=== PATIENT | male | born 1940 | race Caucasian/White ===

== ENCOUNTER 2017-10-18 14:58 | Observation (INO) | payer OTHER ==
[2017-10-18] MEDS ORDERED: NS 0.9% 1000 ML* 1,000 ML IV ONE (15:08)
--- NOTE | 2017-10-18 15:27 | RAD ---
HISTORY: Aphasia COMPARISONS: None TECHNIQUE: Multiple contiguous axial CT scans were obtained of the head without intravenous contrast. FINDINGS: HEMORRHAGE/INFARCT: There is no hemorrhage or acute infarct. MASSES/SHIFT: There is no mass or shift. EXTRA-AXIAL SPACES: There are no extra-axial fluid collections. SULCI AND VENTRICLES: The sulci and ventricles are normal in size and position for the patient's stated age. CEREBRUM: There are no focal parenchymal abnormalities. BRAINSTEM: There are no focal parenchymal abnormalities. CEREBELLUM: There are no focal parenchymal abnormalities. VESSELS: The vessels are grossly normal. PARANASAL SINUSES: The paranasal sinuses are clear. ORBITS: The orbits are unremarkable. BONES AND SOFT TISSUE: No bone or soft tissue abnormalities are noted. OTHER: None IMPRESSION: NO ACUTE INTRACRANIAL PATHOLOGY. PRELIMINARY FINDINGS WERE DISCUSSED WITH DR. CORNELL AT APPROXIMATELY 3:23 PM ON OCTOBER 18, 2017.
[2017-10-18 15:37] LABS: Hematocrit 40 % (42-52); Hemoglobin 13.4 g/dl (14.0-18.0); Mean Corpuscular HGB Conc 34 g/dl (31-36); Mean Corpuscular Hemoglobin 29 pg (27-31); Mean Corpuscular Volume 86 fL (80-94); Mean Platelet Volume 8 um3 (7.4-10.4); Red Cell Distribution Width 14 % (10.5-15); White Blood Count 6.7 10^3/ul (3.5-10.8)
[2017-10-18 15:51] LABS: Albumin 4.2 g/dL (3.2-5.2); BUN/Creatinine Ratio 12.5 (8-20); Calcium 8.9 mg/dL (8.6-10.3); EGFR African American 51.1 (>60); EGFR Non-African American 39.7 (>60); Globulin 2.2 g/dL (2-4); HDL Cholesterol 46.9 mg/dL; Potassium 4.3 mmol/L (3.5-5.0); Total Bilirubin 0.5 mg/dL (0.2-1.0); Total Protein 6.4 g/dL (6.4-8.9)
--- NOTE | 2017-10-18 15:53 | RAD ---
HISTORY: Confusion, weakness COMPARISONS: None VIEWS: 1: frontal portable view of the chest at 3:35 PM FINDINGS: LINES AND TUBES: None. CARDIOMEDIASTINAL SILHOUETTE: The cardiomediastinal silhouette is normal for portable technique. PLEURA: The costophrenic angles are sharp. No pleural abnormalities are noted. LUNG PARENCHYMA: The lungs are clear. ABDOMEN: The upper abdomen is clear. There is no subphrenic gas. BONES AND SOFT TISSUES: No bone or soft tissue abnormalities are noted. IMPRESSION: NO ACTIVE CARDIOPULMONARY DISEASE.
[2017-10-18] MEDS ORDERED: Ondansetron INJ* 2 MG/ML VIAL IV PRN (16:20)
[2017-10-18] MEDS ORDERED: Acetaminophen TAB* 325 MG PO PRN (16:20)
[2017-10-18 16:25] LABS: Urine Bilirubin Negative (Negative); Urine Glucose Negative (Negative); Urine Nitrite Negative (Negative)
[2017-10-18] MEDS ORDERED: Iodixanol* (CONTRAST) 320 MG/ML 100 ML SDV IV ONE (16:43)
[2017-10-18] MEDS ORDERED: NS 0.9% 1000 ML* 1,000 ML IV SCH (16:45)
--- NOTE | 2017-10-18 18:04 | RAD ---
HISTORY: Word finding, confusion and weakness COMPARISONS: Noncontrast CT October 18, 2017 TECHNIQUE: The following sequences were obtained of the head: Sagittal T1-weighted images, axial T2-weighted images, axial FLAIR images, axial susceptibility weighted images, axial T1-weighted images. Additionally, axial diffusion-weighted images were obtained with calculated apparent diffusion coefficients.. FINDINGS: HEMORRHAGE/INFARCT: There is no hemorrhage or acute infarct. MASSES/SHIFT: There is no mass or shift. EXTRA-AXIAL SPACES/MENINGES: There are no extra-axial fluid collections. SULCI AND VENTRICLES: The sulci and ventricles are normal in size and position for the patient's stated age. CEREBRUM: There is periventricular and subcortical white matter fluid bright T2 hyperintensities symmetrically distributed in the bilateral hemispheres. The gonzales-white matter differentiation is adequately maintained. There is no large area of encephalomalacia. BRAINSTEM: There are no focal parenchymal abnormalities. CEREBELLUM: There are no focal parenchymal abnormalities. The cerebellar tonsils are normal in size and position. SELLA: The sella is normal. PINEAL: The pineal region is clear. CP ANGLE/TEMPORAL BONES: The labyrinthine structures are grossly normal. VESSELS: Normal flow-voids are noted within the visualized vertebral vasculature. DIFFUSION ABNORMALITIES: There are no diffusion abnormalities. PARANASAL SINUSES/MASTOIDS: There are inspissated secretions in the bilateral maxillary sinuses. The remaining visualized paranasal sinuses are adequately aerated. ORBITS: The orbits are unremarkable. BONES AND SOFT TISSUE: No bone or soft tissue abnormalities are noted. IMPRESSION: 1. NO MRI EVIDENCE OF ACUTE TERRITORIAL INFARCTION. 2. FLUID BRIGHT FOCI IN THE PERIVENTRICULAR AND SUBCORTICAL WHITE MATTER IS MOST COMMONLY ASSOCIATED WITH CHRONIC MICROVASCULAR DISEASE. A LESS LIKELY CONSIDERATION IS DEMYELINATING DISEASE. IF THE LATTER IS OF CLINICAL CONCERN FURTHER CHARACTERIZATION WOULD REQUIRE CONTRAST ENHANCEMENT.
--- NOTE | 2017-10-18 19:18 | RAD ---
CPT II: CPT II Codes: 3100F INDICATION: Word finding COMPARISON: Same day MRI and CT of the brain that shows evidence of chronic microvascular disease but no territorial infarction. TECHNIQUE: A CT angiogram of the head and neck was performed with 80 cc of Visipaque 320. Contiguous axial sections were obtained from the thoracic inlet through the [place]. Images were reconstructed in the sagittal, coronal planes and in a 3-D volume rendered format. The distal cervical internal carotid artery diameter is used as the denominater for stenosis measurement. CTA NECK: The common and internal carotid arteries are patent without hemodynamically significant stenosis. Right: The right common carotid artery measures 7 mm in diameter. There is mixed attenuation atherosclerosis at the right carotid bulb but the short axis diameter remains 9 mm yielding 0% degree stenosis. Left: The left common carotid artery measures 6 mm in diameter. There is mild mixed attenuation atherosclerosis at the right carotid bulb that short axis diameter remains 8 mm yielding 0% degree stenosis. The vertebral arteries are patent without gross abnormality. CTA of the brain: The internal carotid, anterior and middle cerebral arteries appear are patent without high grade stenosis or occlusion. The vertebral, basilar and posterior cerebral arteries appear patent without high grade stenosis or occlusion. The left posterior communicating artery is either extremely diminutive or absent causing the [place] to be incomplete. No focal luminal filling defect, aneurysm or vascular malformation is seen. NON-ARTERIAL FINDINGS: There are inspissated secretion in the bilateral maxillary sinuses. Degenerative changes of the cervical spine includes loss of intervertebral disc height and marginal osteophyte formation. There is straightening of the normal cervical lordosis. IMPRESSION: 1. Normal CT angiography of the head and neck. 2. Chronic and degenerative changes noted in the body the report.
--- NOTE | 2017-10-18 20:24 | HP ---
CC: Delia Geronimo MD, [place]; Dr. Cleaning * HISTORY AND PHYSICAL: DATE OF ADMISSION: 10/18/17 PRIMARY CARE PROVIDER: Delia Geronimo MD from [place]. ATTENDING PHYSICIAN WHILE IN THE HOSPITAL: Lyn Chen MD * (report dictated by Rory Elias NP). CONSULTING NEUROLOGIST: Dr. Cleaning. CHIEF COMPLAINT: Trouble with speech. HISTORY OF PRESENTING ILLNESS: Mr. Tamayo is a 77-year-old male patient. He has a history of AFib, hypertension, BPH and a left inguinal hernia. He is on chronic anticoagulation therapy. He came in today around 1 o'clock. He was with his , they were getting ready to depart from [place] to [place] for the holidays and the noted that the patient was having difficulty finding his words. He was most certainly looking at a pair or binoculars, trying to say binoculars, but what was coming out in the 's words was gibberish and just not making sense. It was nonsensical, which was difficult for Dustin and she noticed that he was having difficulty with speech, particularly just trouble finding his words. The patient did state that he recognized this himself and he thought maybe he was tired something to eat, so he ate something, he lied down, it did not go away. He was concerned and he came into our ER here. He denies having any chest pain. He denies having any facial drooping. There was no trouble with weakness to one side. There was no trouble with vision. He did state that he felt a little dizzy and felt like his gait was unsteady when he was walking into the ER today. He denied having any chest pain, shortness of breath. He did state that he had some palpitations yesterday , he took his warfarin at about 11 o'clock last night. He and his was concerned because of the symptoms, he was not acting himself, so he came into the ED, a Ranjit Odom was called. His symptoms did resolve by the time I saw him and he was deemed not to be a tPA candidate based on the fact that he is on Coumadin. He was evaluated in the ED, because of concern for TIA, we were asked to evaluate for admission. PAST MEDICAL HISTORY: Significant for: 1. AFib. 2. Hypertension. 3. BPH. 4. Left inguinal hernia. PAST SURGICAL HISTORY: He has had a toenail extraction only. MEDICATIONS: Home medications include: 1. Warfarin 6 mg daily. 2. Flomax 0.4 mg p.o. daily. 3. Lisinopril 10 mg daily. 4. Proscar 5 mg daily. 5. Toprol-XL 25 mg daily. ALLERGIES: His allergies to medications include no known drug allergies. FAMILY HISTORY: Mother had a history CVA. Father had an [place] at 52. SOCIAL HISTORY: He smoked when he was in college. He does not drink alcohol. He is a physician. Surrogate decision maker is his significant other, Elizabeth. REVIEW OF SYSTEMS: There is no documented fever. He denied having any significant weight change. There was no double vision. There was no ear discharge. He denied having any rhinorrhea. No sore throat or thyroid enlargement. He denied having any chest pain. There was no orthopnea. There was no nocturnal dyspnea. There was no abdominal pain. No nausea. No vomiting. No dysuria. No frequency. No seizures. No loss of consciousness. No pruritus and no skin ulceration. Review of 14 systems was completed, all others negative. PHYSICAL EXAMINATION GENERAL: At this time, Mr. Tamayo is a 77-year-old male patient, who appears to be well nourished, well developed. He is sitting in the ER stretcher. He does not appear to be in any acute distress. VITAL SIGNS: Blood pressure 123/72 with a pulse of 68, respirations 15, O2 sat 96%, temperature 97.8. HEENT: Head: Atraumatic, normocephalic. Eyes: EOMs are intact. Sclerae anicteric and not pale. Throat: Oral mucosa appears to be moist. No oropharyngeal erythema. NECK: Supple. LUNGS: Clear to auscultation bilaterally. No wheezes, rales, or rhonchi. HEART: Sounds S1, and S2. Regular rate and rhythm. No murmurs, rubs, or gallops. ABDOMEN: Soft, flat, nontender. Bowel sounds present. EXTREMITIES: Pulses were 2+ throughout. He is moving all 4 extremities with 5/ 5 strength. NEUROLOGICAL: The patient is awake, alert, oriented x3. Speech is clear. Cranial nerves II through XII were intact. His staffing specialist were equal. Tongue was midline. Gxiwpl-mc-ezef and iwoo-qq-nbhg were both intact bilaterally. He had no gross focal deficits. SKIN: Intact. LABORATORY DATA/DIAGNOSTIC STUDIES: WBC of 6.7, RBC of 4.60, hemoglobin of 13.4, hematocrit 40, platelet count of 209,000. INR 1.84. The sodium was 136, potassium 4.3, chloride of 104, bicarb 26, BUN 21, creatinine of 1.68, I do not have a baseline for comparison. He had a glucose of 109, lactate 1.1, calcium 8.9, total bili 0.5. AST 22, ALT 13, alk phos 60. Troponin 0. Albumin of 4.2. LDH is 115. Urine is pending. I had a brain CT obtained today, impression: No acute intracranial pathology. Chest x-ray today showed no active cardiopulmonary disease. There was an EKG obtained today, which showed normal sinus rhythm, rate of 69. No ST elevations or T-wave inversions were noted. Old medical records were reviewed. ASSESSMENT AND PLAN: Mr. Tamayo is a 77-year-old male patient who comes into our ER today with complaints of difficulty with speech. On evaluation today, there is concern for transient ischemic attack. He will be admitted under observation status for: 1. Transient ischemic attack. At this point, we will get neuro checks every 2 hours. We will go ahead and continue him on his Coumadin, I am going to give him 7.5 mg today. Repeat the INR in the morning. We will get lipid panel, A1c in the morning. We will get an MRI of the brain, CTA of head and neck, and also get an echo, place the patient on telemetry. 2. Benign prostatic hyperplasia. Continue his Proscar and Flomax. 3. Hypertension. In the setting of acute stroke, I am just going to continue with beta-yvette. Hold lisinopril for now. 4. Atrial fibrillation. I will continue his Coumadin and continue with rate controlling agents. 5. DVT prophylaxis. I am just going to put him on SCDs as his INR is 1.84. We will use the Coumadin for the prophylaxis. 6. Fluids, electrolytes and nutrition. He can have a heart-healthy diet. 7. Code status, full code. TIME SPENT: On the admission 60 minutes, greater than half the time was spent face- to-face with the patient obtaining my history and physical, other half of time was spent going over the plan of care with the patient and implementing plan of care. I did discuss the plan of care with my attending, Dr. Chen; she is in agreement. RORY ELIAS, [employer]TER [employer] [id number]/[facility] #: [id number] LITTLE
[2017-10-18] MEDS ORDERED: Warfarin TAB(*) 7.5 MG PO ONE (21:00)
--- NOTE | 2017-10-18 21:14 | CONS ---
CONSULTATION REPORT: DATE OF CONSULT: 10/18/17 REASON FOR ADMISSION: Aphasia, now resolved. HISTORY OF PRESENT ILLNESS: Mr. 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 He has a history of BPH, history of hypertension and a history of paroxysmal atrial fibrillation. About 6 months ago, he started on Coumadin, but he has no history of prior stroke or heart attack. He has been in his usual state of health witnessed, today at around 1 o 'clock he was doing some cleanup work at home preparing for a trip and he noticed that he had some difficulty saying what he wanted to say. He who was at his bedside states that he tried to speak, but some gibberish came out. This lasted for a few minutes and then it resolved. She notes that last night he also seemed to get a little bit confused when he was walking from his room to the bathroom and made a wrong turn. He may have had some difficulty reading as well on the way here, but it is unclear. In any event when he arrived in the ER, his symptoms had resolved. He denies any current chest pain or palpitations , but he states that he did feel some palpitations yesterday. These typically come in clusters with intermittent time between them. He has had no vision changes, no vision loss. No facial droop reported. No facial sensation changes. No numbness, tingling or weakness in his arms or legs. He has had no falls, head trauma. He denies any recent fevers, chills, night sweats, nausea, vomiting diarrhea, constipation. No dyspnea on exertion. He does have some hesitancy, but no dysuria reported. He has otherwise been in his usual state of health. Currently he feels back to his baseline, although he is somewhat anxious about his event. In the ER, he did have a CT of the head done, which showed no acute changes, no evidence of bleeding. No mass effect. CT was reviewed. Chest x-ray in the ER shows no active cardiopulmonary disease. PAST MEDICAL HISTORY: As noted above. PAST SURGICAL HISTORY: Negative. MEDICATIONS: Current medications at home include: 1. Warfarin 6 mg daily. 2. Flomax 0.4 mg daily. 3. Lisinopril 10 mg daily. 4. Finasteride 5 mg daily. 5. Metoprolol 25 mg daily. ALLERGIES: No known drug allergies. FAMILY HISTORY: Noncontributory. SOCIAL HISTORY: He works as a physician automotive parts counter person. He smoked, but none in many many years. Occasional social alcohol use, but nothing heavy. No drug use. He lives with his . He is planning for a vacation leaving today prior to this event. REVIEW OF SYSTEMS: In 14 organ systems as noted above, otherwise negative. PHYSICAL EXAM: Vital Signs: Blood pressure 138/71 to 123/72 to 135/79. He is afebrile. Pulse is 67, respiratory rate is 16, pulse ox 97%. In general, he is a well-nourished, well-developed gentleman in no acute distress. He is sitting in his hospital bed. He is pleasant, well dressed, well groomed. HEENT : Normocephalic, atraumatic. Sclerae are anicteric. Mucous membranes are moist. Oropharynx is clear. Nares are patent. Neck is supple. No thyromegaly , no carotid bruits. No meningismus. Chest: Clear to auscultation bilaterally. Cardiovascular: Regular rate and rhythm without murmurs. Abdomen : Nontender, nondistended. Extremities: No clubbing, cyanosis, or edema. Skin: Warm and dry. Neurologic exam: He is awake, alert and oriented x3. His speech is fluent. There is no dysarthria. Repetition is intact. Recall of recent and remote events is intact. Mood is dysthymic. Affect, mood congruent. Cranial nerves II through XII; pupils are are equal, round, and reactive to light. Extraocular muscles are intact. Visual [place] are full to confrontation. His face is symmetric. Sensation is intact in his face bilaterally. Hearing is intact bilaterally. Tongue is midline. Palate raises symmetrically. Sternocleidomastoid and trapezius intact. He spontaneously moves all extremities antigravity. There is no drift apparent. He is 5/5 throughout. Tone and bulk was normal. DTRs are 1+ and symmetric in the upper and lower extremities bilaterally with equivocal Babinski's. Qlgukv-yb-zgvk and rapid alternating movements and heel to velásquez are all normal. There is no tremor. There is no ataxia. Sensation is intact to light touch and pinprick in all 4 extremities grossly. Gait was not tested at this time. DIAGNOSTIC STUDIES/LAB DATA: Lab work includes a complete metabolic profile with a creatinine of 1.68, glucose of 109, cholesterol of 198, LDL of 115, HDL of 46.9, triglycerides of 181. INR of 1.84. PTT of 40.9. CBC with diff: White count of 6.7, hemoglobin of 13.4, hematocrit of 40. Urine negative. ASSESSMENT AND PLAN: Mr. Tamayo is a 77-year-old gentleman with a history of hypertension, history of paroxysmal atrial fibrillation on Coumadin, subtherapeutic on admission who presents to the hospital within the 3-hour window of TPA, at about 1 o'clock this afternoon developed sudden onset of some speech difficulties, possibly some mild aphasia which resolved after a few minutes. When he arrived at the hospital, his symptoms had resolved with an NIH of 0. He did note some fluttering in his chest last night, none today, but has it occasionally, has been compliant with his medications, but was nontherapeutic on his Coumadin today. At this point, I suspect transient ischemic attack. He will be admitted for additional workup including MRI to rule out any stroke, echocardiogram to look for any evidence of thrombus or valvular disease and CT angiogram of the head and neck versus MRA of the head and neck to look for any evidence of stenosis or large vessel disease. We will continue his Coumadin. My suspicion for a large lobar watershed infarct is very low given his symptoms. Continue moderate blood pressure control. I would allow for some permissive hypertension tonight. He is a nonsmoker. He is a nondiabetic. We will monitor him overnight for any further neurologic events. We can consider adding a statin for better cholesterol control, but can hold for tonight. I will continue his other medications unchanged. We will continue to follow him closely, make further recommendations as necessary. Thank you for the opportunity to participate in his care. [id number]/[facility] #: [id number] LITTLE
[2017-10-19 05:53] LABS: Hematocrit 35 % (42-52); Hemoglobin 12.2 g/dl (14.0-18.0); Mean Corpuscular HGB Conc 34 g/dl (31-36); Mean Corpuscular Hemoglobin 29 pg (27-31); Mean Corpuscular Volume 85 fL (80-94); Mean Platelet Volume 8 um3 (7.4-10.4); Red Blood Count 4.15 10^6/ul (4.0-5.4); Red Cell Distribution Width 13 % (10.5-15); White Blood Count 5.4 10^3/ul (3.5-10.8)
[2017-10-19 06:04] LABS: Calcium 8.2 mg/dL (8.6-10.3); EGFR African American 58.2 (>60); EGFR Non-African American 45.3 (>60); HDL Cholesterol 40.3 mg/dL; Potassium 4.2 mmol/L (3.5-5.0)
[2017-10-19] MEDS ORDERED: Metoprolol Succinate XL TAB* 25 MG PO SCH (09:00)
[2017-10-19] MEDS ORDERED: Finasteride TAB* 5 MG PO SCH (09:00)
[2017-10-19] MEDS ORDERED: Tamsulosin CAP* 0.4 MG PO SCH (09:00)
--- NOTE | 2017-10-19 10:16 | PN ---
DATE OF PROGRESS NOTE: 10/19/2017. Patient is in room 443, bed 2. SUBJECTIVE: The patient is doing well. No new issues over night. He has had no further speech difficulties. He has no numbness, tingling or weakness. He has been walking around. He feels good. He has had no other symptoms since his admission to the hospital. OBJECTIVE: In general, he is a well-nourished, well-developed gentleman in no acute distress. He is sitting in his hospital bed. He is pleasant, well- dressed, well-groomed. Vital Signs: Temperature 97.8, pulse 64, respiratory rate 16, pulse ox 99 percent, blood pressures have been on the low side 97 to 133/50s to 80s. HEENT: He is normocephalic, atraumatic. Scleral anicteric. Mucus membranes are moist. Oropharynx is clear. Nares are patent. Neck is supple. Chest: Clear to auscultation bilaterally. Cardiovascular: He is currently regular rate and rhythm. Abdomen: Nontender. Extremities: No clubbing, cyanosis, or edema. Skin is warm and dry. Neurologic exam: He is awake, alert and oriented times three. His speech is fluent. There is no dysarthria. Recent of recent and remote events is intact. Vocabulary is intact. Mood is euthymic. Affect is mood congruent. Cranial nerves II through XII. Pupils are equal, round and reactive to light. Extraocular muscles are intact. Visual salinas are full. Face is symmetric. Facial sensation is intact. Hearing is intact bilaterally. Tongue is midline. Palate raises symmetrically. His motor exam is 5/5 throughout. No drift. Tone and bulk are both normal. Sensation is grossly intact to light touch throughout. DTR's are 1 + and symmetric in the upper and lower extremities. Equivocal Babinski's. Ewrdqr-[id number]-xcog rapid alternating movements are significant for a very mild intention tremor, otherwise no evidence of ataxia or resting tremor. Gait was not tested this morning, but he has been ambulating without difficulty. LABORATORY DATA: Lab work includes a hemoglobin this morning of 12.2, hematocrit of 35; PT of 2.2, up from 1.84 yesterday, PTT of 40.9. His creatinine is down 1.5 today from 1.6, calcium of 8.2, cholesterol is 164, triglycerides 125, LDL 99, HDL 40.3. STUDIES: He did have a head CTA done yesterday which was negative. He had an MRI of the brain which showed no acute changes. He did have some chronic white matter ischemic changes. Echocardiogram is pending. ASSESSMENT AND PLAN: Mr. Tamayo is a 77-year-old gentleman with a history of atrial fibrillation, on Coumadin, history of hypertension, and BPH who presented to the hospital with some speech difficulties yesterday which resolved after a few minutes. He has since had no further symptoms. Work-up to date is negative. I would continue his current medications, adjusting Coumadin as necessary for therapeutic INR, watch his cholesterol as an outpatient and can add a statin if necessary. Would like his goal LDL to be less than 70. Continue blood pressure control. Watch for any evidence of diabetes. He is a nonsmoker. I will follow-up his echocardiogram. If it is negative, then he can go home. I did have a long talk with the patient and his about returning to the ER with any new stroke like symptoms. He will monitor his INR as an outpatient as well. 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 I will continue to follow him during his hospitalization and plan to see him as an outpatient for follow-up as well. [id number]/[facility] #: [id number] [facility]ITTLE
[2017-10-19 12:29] VITALS: BP 126/71
--- NOTE | 2017-10-19 13:45 | ECHO ---
Patient: ANGELES WELLS [facility] Rec#: [id number] : 1940 Date: 10/19/2017 Age: 77y Height: 170.18 cm / 67.0 in Weight: 80.74 kg / 178.0 lbs Sex: M BSA: 1.92 Room#: 443 Admit Date#: 10/18/2017 Type: Inpatient Referring: Rory Elias NP Reading: Kellie Dai MD Physician Relations Manager: Deirdre Estrella [facility] Transthoracic Echocardiogram Indication: TIA BP: 123/72 HR: 59 Rhythm: Bradycardia Findings History: A-fib,HTN,BPH. Technical Comments: The study quality is good. Completed at 1308. Left Ventricle: The left ventricular chamber size is normal. Mild concentric left ventricular hypertrophy is observed. Global left ventricular wall motion and contractility are within normal limits. The estimated ejection fraction is 55-60%. The assessment of diastolic function is non-diagnostic.most c/w normal. Left Atrium: The left atrium is mildly dilated. Right Ventricle: The right ventricular cavity size is normal. The right ventricular global systolic function is normal. Right Atrium: The right atrium is mildly dilated. There is no patent foramen ovale visualized. A patent foramen ovale is not demonstrated with color Doppler and agitated contrast. Aortic Valve: The aortic valve is trileaflet. There is no evidence of aortic regurgitation. There is no evidence of aortic stenosis. Mitral Valve: The mitral valve leaflets are mildly thickened. There is mild to moderate mitral regurgitation. The mitral regurgitant jet is laterally directed. There is no evidence of mitral stenosis. Tricuspid Valve: The tricuspid valve leaflets are normal. There is moderate tricuspid regurgitation. The right ventricular systolic pressure is estimated at 25 mmHg. No pulmonary hypertension is noted. There is no tricuspid stenosis. Pulmonic Valve: The pulmonic valve appears normal. There is mild pulmonic regurgitation. eccentric, angled towards free wall. There is no pulmonic stenosis. Pericardium: The pericardium appears normal. Aorta: There is no dilatation of the ascending aorta. There is no dilatation of the aortic arch. There is no dilation of the aortic root. Pulmonary Artery: The main pulmonary artery appears normal. Venous: The inferior vena cava appears normal in size. There is a greater than 50% respiratory change in the inferior vena cava dimension. Contrast: Normal saline was used as contrast for the bubble study. Intravenous contrast was used to help determine presence of intracardiac shunting. Conclusions Mild concentric left ventricular hypertrophy is observed. Global left ventricular wall motion and contractility are within normal limits. The estimated ejection fraction is 55-60%. The right ventricular global systolic function is normal. No patent foramen ovale demonstrated with color Doppler and agitated contrast. There is mild to moderate mitral regurgitation. There is moderate tricuspid regurgitation. No prior echo to compare. Measurements Name Value Normal Range RVIDd (AP) 2D 2.5 cm (0.9 - 2.6) RVDdMajor (2D) 3.3 cm (2.2 - 4.4) RAd ISD 4CH 5.1 cm (3.4 - 4.9) RA (A4C)W 3.9 cm (2.9 - 4.6) IVSd (2D) 1.2 cm (0.6 - 1) LVPWd (2D) 1.2 cm (0.6 - 1) LVIDd (2D) 5 cm (3.6 - 5.4) LVIDs (2D) 3.4 cm - LV FS (2D) 32 % (25 - 45) Aortic Annulus 2.3 cm (1.4 - 2.6) Ao root diameter (2D) 2.5 cm (2.1 - 3.5) Ascending Ao 3.4 cm (2.1 - 3.4) Aortic arch 2.5 cm (1.8 - 3.4) Descending Ao 0.5 cm - LA dimension (AP) 2D 4.1 cm (2.3 - 3.8) LAd ISD 4CH 5.7 cm (2.9 - 5.3) LA ISD 4CH W 4 cm (2.5 - 4.5) Name Value Normal Range LA ESV SP 4CH (A/L) 58 ml - LA ESV SP 2CH (A/L) 92 ml - LA ESV BP (A/L) 74 ml - LA ESV BP (A/L) index 38.42 ml/m2 - LA ESV SP 4CH (MOD) 57 ml - LA ESV SP 2CH (MOD) 87 ml - Name Value Normal Range MV E-wave Vmax 0.6 m/sec - MV deceleration time 292 msec - MV A-wave Vmax 0.7 m/sec - MV E:A ratio 1 ratio - LV septal e' Vmax 0.09 m/sec - LV lateral e' Vmax 0.13 m/sec - LV E:e' septal ratio 6.67 ratio - LV E:e' lateral ratio 4.62 ratio - Name Value Normal Range AV Vmax 1 m/sec - AV VTI 25.6 cm - AV peak gradient 4.29 mmHg - AV mean gradient 2.21 mmHg - LVOT Vmax 1 m/sec - LVOT VTI 20.5 cm - LVOT peak gradient 4.16 mmHg - LVOT mean gradient 1.8 mmHg - Name Value Normal Range MR Vmax 4.6 m/sec - MR VTI 184 cm - Name Value Normal Range TR Vmax 2.4 m/sec - TR peak gradient 22 mmHg - RAP 3 mmHg - RVSP 25 mmHg - IVC diameter 1.9 cm - Name Value Normal Range PV Vmax 0.8 m/sec - PV peak gradient 2.23 mmHg -
--- NOTE | 2017-10-19 22:18 | ED ---
Ernst Braga Alfonso scribed for Alexandro Noel MD on 10/18/17 at 1516 . Neurological HPI - HPI Summary HPI Summary: This patient is a 77 year old M presenting to [facility] accompanied by with a chief complaint of dysarthria since approximately 1300 today. reports he was pointing at a pair of binoculars and was saying words that werent words and it was clear that it was a moment that was 5 seconds of gibberish he could not repeat words back immediately after I said it and last night he walked into his closet instead of the background, but it was pitch dark. The patient rates the pain 0/10 in severity. Symptoms aggravated by nothing. Symptoms alleviated by spontaneous resolution. Patient reports nausea (during CT scan), and dizziness (during CT scan). reports memory loss, weakness, and fatigue. He recently began taking Coumadin for A-Fib. He ate this morning. 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 - History of Current Complaint Chief Complaint: EDAltMentalStatus Stated Complaint: CONFUSED/WEAKNESS Time Seen by Provider: 10/18/17 15:08 Hx Obtained From: Patient Onset/Duration: Sudden Onset, Started minutes ago, Resolved Timing: Constant Pain Intensity: 0 Pain Scale Used: 0-10 Numeric Character: Other: - Patient reports nausea (during CT scan), and dizziness ( during CT scan). reports memory loss, weakness, and fatigue Aggravating: Nothing Alleviating: Spontanious Resolution - Allergy/Home Medications Allergies/Adverse Reactions: Allergies Allergy/AdvReac Type Severity Reaction Status Date / Time No Known Allergies Allergy Verified 10/18/17 15:31 Home Medications: Home Medications Finasteride TAB* [Proscar TAB*] 5 mg PO DAILY 10/18/17 [History Confirmed ] Lisinopril TAB* [Prinivil TAB*] 10 mg PO DAILY 10/18/17 [History Confirmed 10/18] Metoprolol Succinate XL TAB* [Toprol XL TAB*] 25 mg PO DAILY 10/18/17 [History Confirmed 10/18/17] Tamsulosin CAP* [Flomax CAP*] 0.4 mg PO DAILY 10/18/17 [History Confirmed ] Warfarin TAB(*) [Coumadin TAB(*)] 1 mg PO DAILY 10/18/17 [History Confirmed ] Warfarin TAB(*) [Coumadin TAB(*)] 5 mg PO DAILY 10/18/17 [History Confirmed ] PMH/Surg Hx/FS Hx/Imm Hx Cardiovascular History: Reports: Hx Atrial Fibrillation, Hx Hypercholesterolemia , Hx Hypertension History: Reports: Hx Benign Prostatic Hyperplasia Opthamlomology History: Denies: Hx Legally Blind EENT History: Denies: Hx Deafness Infectious Disease History: No Infectious Disease History: Denies: Traveled Outside the [place] in Last 30 Days - Family History Known Family History: Positive: Other - CVA mother - Social History Lives: With Family Alcohol Use: Occasionally Hx Substance Use: No Substance Use Type: Reports: None Hx Tobacco Use: Yes Smoking Status (MU): Former Smoker Review of Systems Positive: Fatigue. Negative: Fever, Chills Negative: Erythema Negative: Sore Throat Negative: Chest Pain Negative: Shortness Of Breath, Cough Positive: Nausea. Negative: Abdominal Pain, Vomiting Negative: dysuria, hematuria Negative: Myalgia, Edema Negative: Rash Neurological: Other - dysarthria, dizziness, memory loss, weakness All Other Systems Reviewed And Are Negative: Yes Physical Exam - Summary Physical Exam Summary: Constitutional: Well-developed, Well-nourished, Alert. (-) Distressed Skin: Warm, Dry HENT: Eyes: Conjunctiva normal Neck: Musculoskeletal ROM normal neck. (-) JVD, (-) Stridor, (-) Tracheal deviation Cardio: Rhythm regular, rate normal, Heart sounds normal; Intact distal pulses; The pedal pulses are 2+ and symmetric. Radial pulses are 2+ and symmetric. (-) Murmur Pulmonary/Chest wall: Effort normal. (-) Respiratory distress, (-) Wheezes, (-) Rales Abd: Soft. (-) Tenderness, (-) Distension, (-) Guarding, (-) Rebound Musculoskeletal: (-) Edema Lymph: (-) Cervical adenopathy Neuro: Alert, Oriented x3, Strength normal, Cranial nerves II-XII are grossly intact. (-) Dysmetria, (-) Nystagmus, (-) Ataxia by finger to nose testing, (-) Sensory deficit. Psych: Mood and affect Normal Triage Information Reviewed: Yes Vital Signs On Initial Exam: Initial Vitals Temp Pulse Resp BP Pulse Ox 97.8 F 73 18 137/83 98 10/18/17 14:59 10/18/17 14:59 10/18/17 14:59 10/18/17 14:59 10/18/17 14:59 Vital Signs Reviewed: Yes - [place] Coma Scale Best Eye Response: 4 - Spontaneous Best Motor Response: 6 - Obeys Commands Best Verbal Response: 5 - Oriented Diagnostics - Vital Signs Vital Signs Temp Pulse Resp BP Pulse Ox 10/18/17 14:59 97.8 F 73 18 137/83 98 - Laboratory Result Diagrams: 10/18/17 15:30 10/18/17 15:30 Lab Statement: Any lab studies that have been ordered have been reviewed, and results considered in the medical decision making process. - Radiology CXR Radiology Interpretation Completed By: Radiologist - NO ACTIVE CARDIOPULMONARY DISEASE. ED physician has reviewed this radiology report and agrees. - CT Brain CT Interpretation Completed By: Radiologist - NO ACUTE INTRACRANIAL PATHOLOGY. PRELIMINARY FINDINGS WERE DISCUSSED WITH DR. NOEL AT APPROXIMATELY 3:23 PM ON OCTOBER 18, 2017. ED physician has reviewed this radiology report and agrees. - EKG 1532 Cardiac Rate: NL EKG Rhythm: Sinus Rhythm - 69 BPM Ectopy: None EKG Interpretation: No STEMI NIH Scale - NIH Scale Level of Consciousness: Alert/Keenly Responsive Ask Patient the Month and His/Her Age: Both Correct Ask Pt to Open/Close Eyes and Spanisher/Release Non-Paretic Hand: Both Correctly Best Gaze (Only Horizontal Eye Movement): Normal Visual Field Testing: No Visual Loss Facial Paresis-Pt to Smile & Close Eyes or Grimace Symmetry: Normal/Symmetrical Motor Function - Right Arm: No Drift-Holds 10 Seconds Motor Function - Left Arm: No Drift-Holds 10 Seconds Motor Function - Right Leg: No Drift-Holds 10 Seconds Motor Function - Left Leg: No Drift-Holds 10 Seconds Limb Ataxia-Must be out of Proportion to Weakness Present: Absent Sensory (Use Pinprick to Test Arms/Legs/Trunk/Face): Normal Best Language (Describe Picture, Name Items): No Aphasia Dysarthria (Read Several Words): Normal Extinction and Inattention: No Abnormality Total Score: 0 Course/Dx - Course Assessment/Plan: This patient is a 77 year old M presenting to [facility] accompanied by with a chief complaint of dysarthria since approximately 1300 today. reports he was pointing at a pair of binoculars and was saying words that werent words and it was clear that it was a moment that was 5 seconds of gibberish he could not repeat words back immediately after I said it and last night he walked into his closet instead of the background, but it was pitch dark. The patient rates the pain 0/10 in severity. Symptoms aggravated by nothing. Symptoms alleviated by spontaneous resolution. Patient reports nausea (during CT scan), and dizziness (during CT scan). reports memory loss, weakness, and fatigue. He recently began taking Coumadin for A- Fib. He ate this morning. 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 An EKG reveals Sinus Rhythm. CXR reveals, per radiologist, NO ACTIVE CARDIOPULMONARY DISEASE. ED physician has reviewed this radiology report and agrees. CT Brain reveals, per radiologist, NO ACUTE INTRACRANIAL PATHOLOGY. PRELIMINARY FINDINGS WERE DISCUSSED WITH DR. NOEL AT APPROXIMATELY 3:23 PM ON OCTOBER 18, 2017. ED physician has reviewed this radiology report and agrees. Consulted Dr. Cleaning (neurologist) at 1525 regarding the patient's case. Consulted Dustin Elias SPOOL CARRIER at 1558 who agrees to admit. The patient is agreeable with this plan. - Diagnoses Provider Diagnoses: TIA (transient ischemic attack) During the Visit The Following Alert/Code Occurred: Code [place] - Physician Notifications Discussed Care Of Patient With: Jaime Claening Time Discussed With Above Provider: 15:25 Instructed by Provider To: Other - Consulted Dr. Cleaning (neurologist) at 1525 regarding the patient's case. Consulted Dustin Elias SPOOL CARRIER at 1558 who agrees to admit. Discharge - Discharge Plan Condition: Stable Disposition: ADMITTED TO [facility] documentation as recorded by the Ernst ross Alfonso accurately reflects the service I personally performed and the decisions made by me, Alexandro Noel MD.
--- NOTE | 2017-10-20 10:09 | DS ---
CC: Dr. Mauricio Cleaning * DISCHARGE SUMMARY: DATE OF ADMISSION: 10/18/17 DATE OF DISCHARGE: 10/19/17 ADMISSION DIAGNOSES: 1. Transient ischemic attack. 2. Atrial fibrillation. 3. Hypertension. 4. Benign prostatic hypertrophy. DISCHARGE DIAGNOSES: 1. Transient ischemic attack. 2. Atrial fibrillation. 3. Hypertension. 4. Benign prostatic hypertrophy. HOSPITAL COURSE: The patient is a 77-year-old gentleman who presented to [facility] with a chief complaint of trouble speaking. Please see H and P for further details. The patient was admitted for likely TIA. He got neuro checks q.2 hours. We continued him on his Coumadin. He had a brain CT, brain MRI, and CTA of his head. The patient's symptoms resolved by the time he got to the hospital. He was seen by Neurology in followup. The patient was stable for discharge to home. The patient will follow up with his PCP and Neurology. Neurology should be seen in 6 to 8 weeks. The patient should continue his current therapy. His workup was essentially unremarkable. PHYSICAL EXAMINATION: On the date of discharge: A well-developed, well- nourished gentleman, sitting up in bed, in no acute distress. Vital Signs: Temperature 98.2 degrees, heart rate 62 beats per minute, respiratory rate 16 breaths per minute, pulse ox 99%, blood pressure 126/71. HEENT: Normocephalic and atraumatic. Pupils are equal, round, and reactive to light. Moist mucous membranes. Neck is supple. No JVD, bruits, palpable thyroid or lymphadenopathy. Chest: Clear to auscultation and percussion bilaterally. Cardiovascular Exam: S1 and S2 appreciated. Regular rate and rhythm. Abdominal Exam: Positive bowel sounds in all 4 quadrants. Soft, nontender, and nondistended. No hepatosplenomegaly. Extremities: No cyanosis, clubbing, or edema. +2 peripheral pulses bilaterally. Neuro: Alert and oriented x3, moves all extremities. Skin: No rashes or abnormalities. STUDIES DONE WHILE IN THE HOSPITAL: Brain CT, 10/18/17. Impression: No acute intracranial pathology. Chest x-ray, 10/18/17. Impression: No active cardiopulmonary disease. Brain MRI, 10/18/17. Impression: No MRI evidence of acute territorial infarction. Fluid, right foci of the periventricular and subcortical white matter is most commonly associated with chronic microvascular disease, less likely consideration is demyelinating disease. The latter is clinical concern. Further characterization would require contrast enhancement. Head CTA, 10/18/17. Impression: Normal CT angiography of the head and neck. Chronic degenerative changes noted in the body of the report. Transthoracic echocardiogram, 10/18/17. Impression: Mild concentric left ventricular hypertrophy is observed. Global left ventricular wall motion and contractility within normal limits. Estimated EF of 55% to 60%. Biventricular global systolic function is normal. No patent foramen ovale demonstrated with color Doppler and agitated contrast. Xiad-by-ltdendht mitral regurgitation. Moderate tricuspid regurgitation. No prior echo to compare. DISCHARGE MEDICATIONS: 1. Coumadin 6 mg daily. 2. Tamsulosin 0.4 mg daily. 3. Lisinopril 10 mg daily. 4. Finasteride 5 mg daily. 5. Metoprolol succinate 25 mg daily. DISCHARGE PLAN: The patient will be discharged home to follow up with his PCP within 1 week and Neurology in 6 to 8 weeks. The patient will return to the ED if symptoms recur. TIME SPENT: Over 40 minutes were spent on this discharge, more than 25 minutes of which were spent in direct [id number] with the patient in evaluation, physical exam, counselling, and coordination of care. [id number]/[facility] #: [id number] [facility] HOSPITALJulius
== END 2017-10-19 16:15 | disposition home or self-care (01) ==
LOC: ED 14:58 → MEDTELE 16:42
PROVIDERS: ADMIT Internal Medicine; ATTEND Internal Medicine
DX: G45.9 Transient cerebral ischemic attack, unspecified (principal); I48.91 Unspecified atrial fibrillation; Z79.01 Long term (current) use of anticoagulants; I10 Essential (primary) hypertension; N40.0 Benign prostatic hyperplasia without lower urinary tract symptoms; I51.7 Cardiomegaly; K40.90 Unilateral inguinal hernia, without obstruction or gangrene, not specified as recurrent; Z79.899 Other long term (current) drug therapy; Z87.891 Personal history of nicotine dependence
CPT/HCPCS: 36415; 70450; 70496; 70498; 70551; 71010; 80048; 80053; 80061; 81003; 83036; 83605; 84484; 85025; 85610; 85730; 86850; 86900; 86901; 93005; 93306; 96360; 99285; A9270-GY; G0378; Q9967

== ENCOUNTER 2018-02-17 12:33 | Inpatient (IN) | payer OTHER ==
--- NOTE | 2018-02-17 13:44 | ED ---
Priscilla Braga Julia, scribed for Stephania Betancur MD on 02/17/18 at 1322 . Neurological HPI - HPI Summary HPI Summary: This patient is a 78 year old M [facility] by his with a chief complaint of gradually worsening weakness of the bilateral upper and lower extremities and tingling of the fingers and toes since 02/14/18. Pt states he first noticed sx on Tuesday. States his middle fingers on both hands were tingling. Pt states on Tuesday he went for a walk and had hip pain described as achey and tight while walking. Since this time, he notices his hands are weak and shaky - requiring 2 hands to drink from a cup. He reports awkward and cautious movements while walking. describes walking as lurgee like and shuffled. Patient reports recent cold like illness without fever - resolved over the weekend. Pt also with significant rhinorrhea. Patient denies CP, SOB, nausea, vomiting, difficulty collecting thoughts, difficulty talking, and difficulty eating. Patient has a history of TIA, in September 2017, with expressive aphasia that spontaneously resolved without residual side effects. Patient is on Coumadin for intermittent a-fib. He spoke with her neurologist Dr. Cleaning and has an appointment for 02/21/18, but he came to the ED because of worsening symptoms. 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 Pt's medications reviewed this visit. - History of Current Complaint Chief Complaint: EDNeurologicalDeficit Stated Complaint: FINGER NUMBNESS/WEAKNESS Time Seen by Provider: 02/17/18 13:04 Hx Obtained From: Patient, Family/[employer] Onset/Duration: Gradual Onset, Started days ago Timing: Constant Onset Severity: Mild Current Severity: Moderate Neurological Deficit Location: RUE, LUE, RLE, LLE Pain Intensity: 2 Character: Numbness/Tingling - to fingers and toes, Motor Weakness - in extremities Associated Signs and Symptoms: Positive: Negative - CP, SOB, nausea, vomiting, difficulty collecting thoughts, difficulty talking, and difficulty eating, Unsteady Gait, Weakness Related Hx: Recent Illness - and TIA, Coumadin - Additional Pertinent History Primary Care Physician: [id number] - Allergy/Home Medications Allergies/Adverse Reactions: Allergies Allergy/AdvReac Type Severity Reaction Status Date / Time No Known Allergies Allergy Verified 02/17/18 12:46 PMH/Surg Hx/FS Hx/Imm Hx Previously Healthy: Yes Endocrine/Hematology History: Reports: Hx Anticoagulant Therapy Denies: Hx Diabetes Cardiovascular History: Reports: Hx Atrial Fibrillation, Hx Hypercholesterolemia , Hx Hypertension - well controlled Denies: Hx Pacemaker/ICD History: Reports: Hx Benign Prostatic Hyperplasia Denies: Hx Renal Disease Musculoskeletal History: Reports: Hx Back Problems - disc problem Sensory History: Reports: Hx Contacts or Glasses Denies: Hx Legally Blind, Hx Deafness, Hx Hearing Aid Opthamlomology History: Reports: Hx Contacts or Glasses Denies: Hx Legally Blind Neurological History: Reports: Hx Transient Ischemic Attacks (TIA) Psychiatric History: Denies: Hx Panic Disorder - Surgical History Surgery Procedure, Year, and Place: skin tages removed. 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 Lives: With Family Alcohol Use: Occasionally Hx Substance Use: No Substance Use Type: Reports: None Hx Tobacco Use: Yes Smoking Status (MU): Former Smoker Review of Systems Negative: Fever Positive: Nasal Discharge Negative: Chest Pain Negative: Shortness Of Breath Negative: Vomiting, Nausea Neurological: Negative - difficulty collecting thoughts, difficulty talking, and difficulty eating Positive: Weakness - of extremities, Numbness - and tingling of the fingers and toes All Other Systems Reviewed And Are Negative: Yes Physical Exam Triage Information Reviewed: Yes Vital Signs On Initial Exam: Initial Vitals Temp Pulse Resp BP Pulse Ox 96.6 F 76 14 123/73 94 02/17/18 12:46 02/17/18 12:46 02/17/18 12:46 02/17/18 12:46 02/17/18 12:46 Vital Signs Reviewed: Yes Appearance: Positive: Well-Appearing, No Pain Distress, Well-Nourished Skin: Positive: Warm, Skin Color Reflects Adequate Perfusion, Dry Head/Face: Positive: Normal Head/Face Inspection Eyes: Positive: Normal, EOMI, CHEPE ENT: Positive: Normal ENT inspection, Hearing grossly normal, TMs normal Neck: Positive: Supple, Nontender, No Lymphadenopathy Respiratory/Lung Sounds: Positive: Clear to Auscultation, Breath Sounds Present , Decreased Breath Sounds Cardiovascular: Positive: Normal, RRR, Pulses are Symmetrical in both Upper and Lower Extremities Abdomen Description: Positive: Nontender, No Organomegaly, Soft Bowel Sounds: Positive: Present Musculoskeletal: Positive: Other - 4+/5 right extension elbow 4/5 grasp b/l 4+/ 5 SLE, flex/ext knee, ankle 4/5 great toe extension Neurological: Positive: Alert, Oriented to Person Place, Time, CN Intact II-III , Abnormal Gait. Negative: Reflexes Intact - decreasd, right bicep, b/l patellar + gross sensation, Receptive Aphasia, Expressive Aphasia Psychiatric: Positive: Normal AVPU Assessment: Alert - [place] Coma Scale Best Eye Response: 4 - Spontaneous Best Motor Response: 6 - Obeys Commands Best Verbal Response: 5 - Oriented Coma Scale Total: 15 Diagnostics - Vital Signs Vital Signs Temp Pulse Resp BP Pulse Ox 02/17/18 12:46 96.6 F 76 14 123/73 94 - Laboratory Result Diagrams: 02/17/18 14:01 02/17/18 14:01 Lab Statement: Any lab studies that have been ordered have been reviewed, and results considered in the medical decision making process. - CT Brain CT CT Interpretation Completed By: Radiologist - Mild involutional change and stigmata of chronic small vessel ischemic disease. No acute intracranial process evident. ED Physician has reviewed this report. 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 added Lyme, B6, B12, folate, sed rate. EMG at bedside. anticipate IVIG. request admission to hospitalist. Pt and updated regarding plan Course/Dx - Course Assessment/Plan: Pt presents with progressive paresthesia to ext x 4 and progresssive ascending weakness upper and lower ext. - sx progressive x 2 days. Pt with viral URI last week. Concern for Guillian [place]. Requested neurology to evaluate pt. labs. head CT (on coumadin). pt comfortable and in agreement with plan - Diagnoses Provider Diagnoses: Guillain-[place], Paresthesia, Weakness - Physician Notifications Instructed by Provider To: Admit As Inpatient Discharge - Sign-Out/Discharge Documenting (check all that apply): Discharge - Discharge Plan Condition: Good Disposition: ADMITTED TO [facility] Referrals: No Primary Care Phys,NOPCP [Primary Care Provider] - - Billing Disposition and Condition Condition: GOOD Disposition: [facility] Consult Consult: At 13:39, Dr. Brown, neurologist, agrees to see patient in ED. At 2:24, Dr. Rapp, hospitalist, agrees to admit. The documentation as recorded by the Priscilla ross Julia accurately reflects the service I personally performed and the decisions made by , Stephania Betancur MD.
--- NOTE | 2018-02-17 13:56 | RAD ---
Indication: Ascending weakness. History of TIA. On Coumadin. Comparison: October 18, 2017 MRI. October 18, 2017 CT. Technique: Noncontrast CT vertex of skull through foramen magnum. Report: Mild prominence of the cerebral sulci reflecting atrophy. Unremarkable ventricles and basal cisterns. Negative for gonzales matter white matter obscuration, intra or extra-axial hemorrhage, or mass effect. Mild decreased density in the periventricular and subcortical white matter while non-specific is most likely due to chronic microangiopathy. No suspicious lesions of the calvarium or skull base. Unremarkable scalp. IMPRESSION: Mild involutional change and stigmata of chronic small vessel ischemic disease. No acute intracranial process evident.
[2018-02-17 14:10] LABS: ABS Basophils 0 10^3/ul (0-0.2); ABS Eosinophils 0.1 10^3/ul (0-0.6); ABS Lymphocytes 1.2 10^3/ul (1.0-4.8); ABS Monocytes 0.6 10^3/ul (0-0.8); ABS Neutrophils 3.4 10^3/ul (1.5-7.7); ABS Nucleated RBC 0 10^3/ul; Eosinophil % 2.7 % (0-6); Hematocrit 40 % (42-52); Hemoglobin 13.6 g/dl (14.0-18.0); Lymphocyte % 22.4 % (25-47); Mean Corpuscular HGB Conc 34 g/dl (31-36); Mean Corpuscular Hemoglobin 29 pg (27-31); Mean Corpuscular Volume 85 fL (80-94); Mean Platelet Volume 7.6 um3 (7.4-10.4); Nucleated Red Blood Cells % 0; Platelet Count 224 10^3/ul (150-450); Red Blood Count 4.73 10^6/ul (4.0-5.4); Red Cell Distribution Width 14 % (10.5-15); White Blood Count 5.4 10^3/ul (3.5-10.8)
[2018-02-17 14:15] LABS: INR 2.36 (0.77-1.02)
[2018-02-17 14:29] LABS: EGFR Non-African American 43.1 (>60)
[2018-02-17] MEDS ORDERED: Acetaminophen TAB* 325 MG PO ONE (15:28)
[2018-02-17] MEDS ORDERED: Acetaminophen TAB* 325 MG PO PRN (15:29)
--- NOTE | 2018-02-17 17:33 | CONS ---
CONSULTATION REPORT: DATE OF CONSULT: 02/17/18 PATIENT OF: Stephania Betancur, and other physicians include Dr. Cleaning and . HISTORY OF PRESENT ILLNESS: This is a 78-year-old right-handed man, who had a cold beginning about 2 to 3 weeks ago. It was a really bad cold, but it ended about a week ago. Then, beginning on Tuesday, he has had progressive neurological symptoms. He has had bilateral hand numbness and tingling as initial symptoms. Then, he noticed that his feet did not feel sensation quite as much as they used to. He perhaps had a slight change in his walking yesterday. When that became worse today, he came in and he notes that he has difficulty both getting up out of the chair, but also his balance feels a little bit off and the tinging still is more in his hands more than his feet. He has had no headache, no shortness of breath, no urinary problems. He has AFib, but he has had no new cardiac symptoms. No shortness of breath. PAST MEDICAL HISTORY: He has had a past history of TIA, and is on Coumadin for that and his AFib. He has a history of hypertension, as well he has some benign prostatic hypertrophy. PAST SURGICAL HISTORY: Negative. HOME MEDICATIONS: Include: 1. Warfarin 6 mg daily. 2. Flomax 0.4 mg daily. 3. Metoprolol 25 mg daily. 4. Lisinopril 10 mg daily. 5. Proscar 5 mg daily. ALLERGIES: He has no allergies. FAMILY HISTORY: He smoked, but nothing in the past many years. He drinks socially, but not for years. PHYSICAL EXAM: Vital signs are not in the chart yet. Respirations 18, pulse 87. He is afebrile. Blood pressure 138/74. He is alert and oriented with normal speech and comprehension. Cranial nerves II through XII were intact. Fundi were benign. Motor exam revealed normal tone in his upper extremities. In his lower extremities, he had 5-/5 weakness in his right dorsiflexion. Strength elsewhere was intact. Sensation is decreased in a glove stocking manner in his feet and in his right arm. There is no significant in his left arm. Reflexes were trace to 1 in his legs, 1+ in his arms. He had unsteady Romberg. This unsteadiness has caused the new sensation for him. He also has a slightly wide- based gait and tended to not bead picker his feet when he walked and this gait change was new for him. He also could not stand on his toes or his heels and this is a new thing for him and he is strong and active and he feels like he could have done that as recently as the past week. DIAGNOSTIC STUDIES/LAB DATA: No labs are done. He has a CT scan showing some mild chronic ischemic changes. 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 I discussed with him that this could be a chronic situation; if so, this could just be a peripheral neuropathy , but in this pattern and at this time course, Guillain-[place] is a possibility. He cannot get a spinal tap, but EMG may be useful. He smiled and depending on what the findings are, we may elect to treat with IVIG irregardless and I discussed this with him and his . We are sending off blood work. It is the proximal weakness that he said, is slightly unusual for Guillain-[place]. I did not detect any weakness there, but I will be sending off CPK and sed rate, as well as some other blood work. We are getting the EMG nerve conduction study now. Thank you for sharing his case. [id number]/[facility] #: [id number] LITTLE
[2018-02-17] MEDS: Warfarin TAB(*) 6 MG PO SCH (18:20)
--- NOTE | 2018-02-17 20:51 | HP ---
CC: Dr. Delia Geronimo; Dr. Cleaning; Dr. Brown * HISTORY AND PHYSICAL: DATE OF ADMISSION: 02/17/18 PRIMARY CARE PROVIDER: Dr. Delia Geronimo from [place], [place]. CHIEF COMPLAINT: Bilateral hand numbness. 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 He stated that he went to [place] for a couple of weeks, came back off on . He picked up a cold from his family that he was visiting in [place]. The cold symptoms lasted approximately 2 weeks and it was mostly upper respiratory and sinus congestion as well as intermittent low-grade fever. The symptoms resolved within the past week, but three days ago he noted that his bilateral finger tips are tingly and numb. That continued to progress to the point that he needs two hands to hold the cup of tea with. He also noted that his feet were becoming numb and his gait was slightly unsteady. He denies any chest pain, shortness of breath, cough or fevers. He was evaluated in the emergency room and by Dr. 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 He is going to be admitted for IVIG infusions. PAST MEDICAL HISTORY: 1. History of TIA in September 2017 2. History of atrial fibrillation. 3. Hypertension. 4. BPH. 5. Left inguinal hernia repair. MEDICATIONS: Include: 1. Coumadin 6 mg in the evening. 2. Flomax 0.4 mg daily. 3. Lisinopril 10 mg daily. 4. Proscar 5 mg daily. 5. Toprol-XL 25 mg daily. ALLERGIES: No known drug allergies. FAMILY HISTORY: Positive for mother with history of stroke. Father with history of IA at the age of 52. SOCIAL HISTORY: The patient denies any current tobacco, alcohol or drug use. He smoked remotely when in college. He is a semi-retired physician and lives with his , Elizabeth, who is his surrogate. REVIEW OF SYSTEMS: Please see history of present illness. All the remaining 12 systems were reviewed with the patient and they were otherwise negative. PHYSICAL EXAMINATION GENERAL: Dustin is a very pleasant 78-year-old male who is in no acute distress. Alert, awake and oriented x3. VITAL SIGNS: Blood pressure of 130/76, heart rate of 65 and regular, respiratory rate 15, oxygen saturation 96% on room air. Temperature is 98.3. HEENT: Head: Atraumatic, normocephalic. Eyes: Pupils equal, round, and reactive to light and accommodation. Oropharynx clear. Mucosa moist. NECK: Supple. No JVD. No bruits bilaterally. RESPIRATORY: Clear to auscultation bilaterally. CARDIOVASCULAR: Regular rate and rhythm. No murmur. ABDOMEN: Soft, nontender. Bowel sounds are present in all 4 quadrants. EXTREMITIES: There is no edema, pulses are +2 bilaterally. There is no clubbing or cyanosis. NEUROLOGIC: Speech is clear. Cranial nerves II through XII grossly intact. Motor strength is 5/5 bilaterally. The patient appears generally fatigued. He has mild numbness in bilateral hands and bilateral feet. [id number] is not dysmetric. Gait not evaluated. PSYCHIATRIC EVALUATION: Oriented x2, with no evidence of anxiety or depression. LABORATORY DATA AND STUDIES: White blood cell count of 5.4, hemoglobin of 13.6 , hematocrit of 40 and platelets of 224. INR was 2.36 Sodium of 136, potassium 4.6, chloride 105, carbon dioxide 25, BUN 24, creatinine 1.56. Please note that the patient has chronic kidney disease stage 3 at baseline. Liver function tests were unremarkable. Mild CPK elevation of 239, TSH of 0.4, vitamin B12 278, folate of 15.5, lactic acid of 1.3. Urinalysis unremarkable. Brain CT. Impression: "Mild involutional change. No stigmata of chronic small vessel ischemic changes. No acute intracranial process is evident." Current EKG is pending at the time of dictation. ASSESSMENT AND PLAN: 1. 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 Brown recommended for the patient to be admitted for initially 5 days of IVIG infusions. The patient is going to be placed on negative inspiratory force measurements every 4 hours as well as neuro checks every 4 hours. He is going to be out of bed with assistance. 2. In regards to the patient's atrial fibrillation, today he appears to be in normal rhythm. He is going to be continued on his metoprolol as well as his Coumadin. 3. For his hypertension, his lisinopril is going to be continued. 4. For his history of benign prostatic hyperplasia, his Proscar and Flomax is going to be continued. 5. For DVT prophylaxis, the patient is anticoagulated with Coumadin which is going to be continued. 6. The patient's code status is full and his surrogate is his . TIME SPENT: Approximately 65 minutes were spent on admission of this patient, more than half that time was spent [id number] with the patient during the interview and physical exam. [id number]/[facility] #: [id number] LITTLE
[2018-02-17] MEDS: Docusate CAP* 100 MG PO SCH (21:51)
[2018-02-18 06:21] LABS: ABS Basophils 0.1 10^3/ul (0-0.2); ABS Eosinophils 0.2 10^3/ul (0-0.6); ABS Lymphocytes 1.2 10^3/ul (1.0-4.8); ABS Monocytes 0.6 10^3/ul (0-0.8); ABS Neutrophils 2.8 10^3/ul (1.5-7.7); ABS Nucleated RBC 0 10^3/ul; Eosinophil % 4.1 % (0-6); Hematocrit 38 % (42-52); Hemoglobin 13.1 g/dl (14.0-18.0); Lymphocyte % 24.5 % (25-47); Mean Corpuscular HGB Conc 35 g/dl (31-36); Mean Corpuscular Hemoglobin 29 pg (27-31); Mean Corpuscular Volume 84 fL (80-94); Mean Platelet Volume 7.7 um3 (7.4-10.4); Nucleated Red Blood Cells % 0.2; Platelet Count 203 10^3/ul (150-450); Red Cell Distribution Width 14 % (10.5-15); White Blood Count 4.9 10^3/ul (3.5-10.8)
[2018-02-18 06:42] LABS: EGFR Non-African American 42.8 (>60)
[2018-02-18 07:08] LABS: INR 2.76 (0.77-1.02)
[2018-02-18] MEDS ORDERED: Metoprolol Succinate XL TAB* 25 MG PO SCH (09:00)
[2018-02-18] MEDS: Lisinopril TAB* 10 MG PO SCH (09:22)
[2018-02-18] MEDS: Finasteride TAB* 5 MG PO SCH (09:22)
[2018-02-18] MEDS: Metoprolol Succinate XL TAB* 25 MG PO SCH (09:22)
[2018-02-18] MEDS: Tamsulosin CAP* 0.4 MG PO SCH (09:22)
[2018-02-18] MEDS: Docusate CAP* 100 MG PO SCH ×2 (09:22→20:42)
[2018-02-18 09:40] LABS: Urine Appearance Clear; Urine Blood 2+ (Negative); Urine Color Yellow; Urine Ketones Negative (Negative); Urine Protein Negative (Negative); Urine Specific Gravity 1.008 (1.010-1.030); Urine Urobilinogen Negative (Negative)
--- NOTE | 2018-02-18 11:52 | PN ---
Subjective Date of Service: 02/18/18 Interval History: pt doesn't feels any stronger today. fingers still numb. Had one episode of urine tinged with blood, but then it resolved. Objective Active Medications: Acetaminophen (Tylenol Tab*) 650 mg PO Q4H PRN PRN Reason: FEVER/PAIN Docusate Sodium (Colace Cap*) 100 mg PO BID [facility] Last Admin: 02/18/18 09:22 Dose: 100 mg Finasteride (Proscar Tab*) 5 mg PO DAILY [facility] Last Admin: 02/18/18 09:22 Dose: 5 mg Immune Globulin 30 gm/ IV (Solution) 600 mls @ 0 mls/hr IV 1400 [facility]; Per Protocol PRN Reason: Protocol Stop: 02/21/18 14:01 Lisinopril (Prinivil Tab*) 10 mg PO DAILY [facility] Last Admin: 02/18/18 09:22 Dose: 10 mg Metoprolol Succinate (Toprol Xl Tab*) 25 mg PO DAILY [facility] Last Admin: 02/18/18 09:22 Dose: 25 mg Pharmacy Profile Note (Coumadin Daily Reminder*) 1 note FOLLOW UP 1700 [facility] Tamsulosin HCl (Flomax Cap*) 0.4 mg PO DAILY [facility] Last Admin: 02/18/18 09:22 Dose: 0.4 mg Warfarin Sodium (Coumadin Tab(*)) 6 mg PO DAILY@1700 [facility] PRN Reason: Protocol Last Admin: 02/17/18 18:20 Dose: 6 mg Vital Signs - 8 hr 02/18/18 02/18/18 08:00 08:40 Temperature 98.1 F Pulse Rate 58 Respiratory 18 18 Rate Blood Pressure 133/85 (mmHg) O2 Sat by Pulse 95 Oximetry Oxygen Devices in Use Now: None Appearance: 78 yo M in nAD, aAOx3 Eyes: No Scleral Icterus, PERRLA Ears/Nose/Mouth/Throat: NL Teeth, Lips, Gums, Mucous Membranes Moist Neck: NL Appearance and Movements; NL JVP, Trachea Midline Respiratory: Symmetrical Chest Expansion and Respiratory Effort, Clear to Auscultation Cardiovascular: NL Sounds; No Murmurs; No JVD, RRR Abdominal: NL Sounds; No Tenderness; No Distention Lymphatic: No Cervical Adenopathy, No Auricular Adenopathy Extremities: No Edema Skin: No Rash or Ulcers, No Nodules or Sclerosis Neurological: Alert and Oriented x 3, NL Muscle Strength and Tone, - - wide gait , numbness in b/l hands and feet Result Diagrams: 02/18/18 06:04 02/18/18 06:04 Assess/Plan/Problems-Billing 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
[2018-02-18] MEDS: IMMUNE GLOBULIN IV SCH (15:16)
[2018-02-18] MEDS: OCTAGAM IV SCH (15:16)
[2018-02-18] MEDS: Warfarin TAB(*) 6 MG PO SCH (17:21)
--- NOTE | 2018-02-19 02:55 | PN ---
NEUROLOGY FOLLOWUP: DATE OF FOLLOWUP: 02/18/18 HISTORY: No acute overnight events. This morning, the patient does feel like he may be slightly weaker particularly in his upper extremities. He had a bit more difficulty with getting his hand to his mouth and had his open his orange juice and his milk carton whereas he was able to do that himself yesterday. However, he also states that he thinks that he would not have been able to do it and therefore maybe did not try as hard. I confirmed the history taken by Dr. Brown yesterday, which includes a prodrome of an upper respiratory infection a couple of weeks prior to the onset of the symptoms, which now began approximately 5 days ago. He denies any low back pain, but does have some discomfort in his upper back and in his hips as well. He has taken a lap or two around the unit with his and still feels that his gait is wide based but he is able to walk without too much difficulty. He has been more tired than usual and had some questions about what his overall activity should be. MEDICATIONS: Include: IVIg having received the first dose last night around 10 p.m. and planned for 5 doses total. In addition: 1. Colace 100 mg twice daily. 2. Finasteride 5 mg daily. 3. Lisinopril 10 mg daily. 4. Metoprolol 25 mg daily. 5. Tamsulosin 0.4 mg daily. 6. Warfarin 6 mg daily. PHYSICAL EXAM: Vitals Signs: Temperature 98.1, blood pressure 133/85, heart rate 58, oxygen saturation 95% on room air. He is well-appearing, sitting in the chair at his bedside. He is fully awake, alert, and oriented. His heart is irregularly irregular. Lungs are clear to auscultation bilaterally. He had a visit by Respiratory Therapy with a negative inspiratory force measured at minus 60, which has been stable. On neurologic examination, his pupils are equal, round, and reactive from 2 to 1.5 mm. Versions are full without nystagmus and he denies any diplopia. Weinberg are full to concentration. His facial musculature is full strength including cheek puffs and pursing. Hearing is intact to voice. SCM is 5/5 bilaterally. Neck flexion appears normal. Shoulder shrug was full and symmetric. On motor testing, he has normal tone in his upper and lower extremities. His shoulder abductors are approximately grade 4 bilaterally. Biceps, triceps, wrist flexion and extension feel full, but he has some weakness in the right first dorsal interosseous muscle. In his lower extremities , there is just slight give in his hip flexion bilaterally. His quadriceps are 5 /5 bilaterally, but hamstrings are about a 5 minus bilaterally. I did not detect any significant weakness in ankle dorsiflexion but did not have him try to walk on heels or toes today. His reflexes are 1+ in the brachioradialis, possibly trace but very difficult to elicit in the biceps and triceps, trace at the knees, and absent ankle jerks. Toes are mute to downgoing. Sensory testing shows no sensory deficit to pinprick in the upper or lower extremities. His gait is just slightly wide based but overall steady. DIAGNOSTIC STUDIES/LAB DATA: Today, shows a slightly lower hematocrit of 38 from 40 yesterday, hemoglobin 13.1 from 13.6 yesterday. Creatinine is stable at 1.57. CK is normal at 162, slightly high yesterday at 239. His INR is 2.76 today. He also did mention some hematuria to Dr. Rapp and his urinalysis showed 2+ blood with 1+ rbc's and 3+ glucose. I note that a Lyme disease serology and vitamin B6 levels are pending. The nerve conduction studies yesterday demonstrated prolongation of F waves. He was started on IVIg. IMPRESSION AND PLAN: Dustin Tamayo is a 78-year-old man with a history of atrial fibrillation, on Coumadin, who presented with about 4 to 5 days of first sensory symptoms followed by difficulty with walking and electrodiagnostic studies suggestive of Guillain-[place] syndrome. He has been started on a 5-day course of IVIg and yesterday received day 1 of 5 and tolerated this well. Today , I did discuss possible risks of IVIg with him including possibility of renal failure secondary to the volume/protein load as well as hyperviscosity and risk of thromboembolism, especially in light of the transient ischemic attack that he experienced late last year. Given his history of atrial fibrillation, on anticoagulation, plasma exchange would similarly carry risks for him and he and his are comfortable at this point with the risks as stated of IVIg. He will receive his second dose this afternoon and I will plan to continue with a total dose of 2 g/kg. If he is doing well clinically, there is a possibility that he could go home after the dose on Tuesday to receive the last dose in the infusion center as an outpatient but given the risks that we discussed today, he and his will consider this and may be more comfortable with him staying in the hospital for the entire course. We will have PT and OT see him and he was encouraged to continue walking as he feels he is able, for example taking 1 to 2 laps per day around the unit but not overdoing it. He also asked me about a trip to [facility], which is planned for around 03/02/18. He would be going, participating in some conferences and visiting his 's family and I stated that we would have to see how things go but I think that it may be asking a lot of himself to plan on going on this trip at this point. I will continue to follow the patient along while he is in the hospital. [id number]/[facility] #: [id number] CARLOD
[2018-02-19 06:27] LABS: INR 2.91 (0.77-1.02)
[2018-02-19] MEDS: Metoprolol Succinate XL TAB* 25 MG PO SCH (08:55)
[2018-02-19] MEDS: Tamsulosin CAP* 0.4 MG PO SCH (08:57)
[2018-02-19] MEDS: Finasteride TAB* 5 MG PO SCH (08:57)
[2018-02-19] MEDS: Docusate CAP* 100 MG PO SCH ×2 (08:58→21:34)
[2018-02-19] MEDS: Lisinopril TAB* 10 MG PO SCH (09:02)
[2018-02-19] MEDS: OCTAGAM IV SCH (14:41)
[2018-02-19] MEDS: IMMUNE GLOBULIN IV SCH (14:41)
[2018-02-19] MEDS: Warfarin TAB(*) 6 MG PO SCH (17:10)
--- NOTE | 2018-02-20 01:23 | PN ---
CC: Mauricio Cleaning MD * NEUROLOGY FOLLOWUP: DATE OF FOLLOWUP: 02/19/18 HISTORY: No acute overnight events. The patient tolerated his second dose of IVIg without difficulty. He feels he is stable to improved today. He has noticed that it is more shaky when he holds a cup of coffee in his right hand, but he does not think this is new. He just thinks he is becoming more aware of it. He is not having much in the way of muscular discomfort in his upper back any longer, but still has some tiredness in his quadriceps. He denies any headache. MEDICATIONS: Include: 1. IVIg day 01/30 today. 2. Tylenol 650 q.4 p.r.n. 3. Colace 100 mg twice daily. 4. Finasteride 5 mg daily. 5. Lisinopril 10 mg daily. 6. Metoprolol 25 mg daily. 7. Warfarin 6 mg daily. 8. Flomax 0.4 mg daily. PHYSICAL EXAM: Vitals Signs: Temperature 97.4, blood pressure 128/76, heart rate 56, oxygen saturation 95% on room air. On general examination, he is well appearing, sitting in one of his chairs in his room, finishing his lunch. Friend of his had come to visit and his was present as well. His heart is in a regular rate and rhythm. Lungs were clear to auscultation bilaterally. There is no lower extremity edema. On neurologic exam, his eye movements are full. Facial musculature is full and symmetric. The palate elevates symmetrically and the tongue is midline. On motor examination, he has grade 5- strength in the shoulder abductors bilaterally, nearly full strength in the biceps bilaterally, 5- right triceps, 5 in the left triceps, 5- right wrist extensor, 5 left wrist extensor, finger extension on the right is 4 and 5 on the left, first dorsal interosseus again on the right is about a 3, and the ADM on the right is 5-. In the lower extremities, he has essentially full strength aside from some mild give in the hip flexors today and some possible very mild weakness in the knee flexors bilaterally. He is able to stand on his heels and his toes today. His gait remains slightly wide based and when turning, he seemed a little unsteady, but did not lose his balance. Reflexes are absent throughout except for trace biceps on the right, 1+ brachioradialis bilaterally. IMPRESSION AND PLAN: Guillain-[place] syndrome in a 78-year-old man with a history of atrial fibrillation, on Coumadin and TIA late last year. He has been tolerating IVIg well and appears stable to improved today. He will continue with his IVIg course today. He seems resigned to the fact now that it would probably make the most sense to keep him here for monitoring for his 5- day course and we could hopefully give the dose due on Tuesday, a bit earlier, so that he might be able to be discharged in the late afternoon/early evening. He had a followup scheduled with Dr. Cleaning for evaluation of these symptoms early next week and I will contact my office to let them know that that will need to be canceled. [id number]/[facility] #: [id number] MTDD
[2018-02-20 07:30] LABS: EGFR Non-African American 40.2 (>60)
[2018-02-20] MEDS: Metoprolol Succinate XL TAB* 25 MG PO SCH (10:04)
[2018-02-20] MEDS: Finasteride TAB* 5 MG PO SCH (10:04)
[2018-02-20] MEDS: Tamsulosin CAP* 0.4 MG PO SCH (10:04)
[2018-02-20] MEDS: Docusate CAP* 100 MG PO SCH ×2 (10:04→21:40)
[2018-02-20] MEDS: Lisinopril TAB* 10 MG PO SCH (10:04)
--- NOTE | 2018-02-20 10:24 | PN ---
Subjective Date of Service: 02/19/18 Interval History: . Interviewed and examined patient at bedside; Discussed case with Dr. Rapp; Reviewed previous notes and radiology results; Patient in good spirits. Tolerating IVIG without difficulty. Family History: Unchanged from Admission Social History: Unchanged from Admission Past Medical History: Unchanged from Admission Objective Active Medications: . Acetaminophen (Tylenol Tab*) 650 mg PO Q4H PRN PRN Reason: FEVER/PAIN Docusate Sodium (Colace Cap*) 100 mg PO BID [facility] Last Admin: 02/20/18 10:04 Dose: 100 mg Finasteride (Proscar Tab*) 5 mg PO DAILY [facility] Last Admin: 02/20/18 10:04 Dose: 5 mg Immune Globulin 30 gm/ IV (Solution) 600 mls @ 0 mls/hr IV 1400 [facility]; Per Protocol PRN Reason: Protocol Stop: 02/21/18 14:01 Last Admin: 02/19/18 14:41 Dose: 48 mls/hr Lisinopril (Prinivil Tab*) 10 mg PO DAILY [facility] Last Admin: 02/20/18 10:04 Dose: 10 mg Metoprolol Succinate (Toprol Xl Tab*) 25 mg PO DAILY [facility] Last Admin: 02/20/18 10:04 Dose: 25 mg Pharmacy Profile Note (Coumadin Daily Reminder*) 1 note FOLLOW UP 1700 [facility] Last Admin: 02/19/18 17:11 Dose: 1 note Tamsulosin HCl (Flomax Cap*) 0.4 mg PO DAILY [facility] Last Admin: 02/20/18 10:04 Dose: 0.4 mg Warfarin Sodium (Coumadin Tab(*)) 6 mg PO DAILY@1700 [facility] PRN Reason: Protocol Last Admin: 02/19/18 17:10 Dose: 6 mg . Vital Signs - 8 hr 02/20/18 02/20/18 02:28 07:58 Temperature 97.9 F 98.4 F Pulse Rate 64 64 Respiratory 16 18 Rate Blood Pressure 112/58 127/71 (mmHg) O2 Sat by Pulse 95 97 Oximetry Oxygen Devices in Use Now: None Appearance: NAD Eyes: No Scleral Icterus Ears/Nose/Mouth/Throat: NL Teeth, Lips, Gums Neck: NL Appearance and Movements; NL JVP Respiratory: Symmetrical Chest Expansion and Respiratory Effort, Clear to Auscultation Cardiovascular: NL Sounds; No Murmurs; No JVD Abdominal: NL Sounds; No Tenderness; No Distention Lymphatic: No Cervical Adenopathy Extremities: No Edema Skin: No Rash or Ulcers Neurological: Alert and Oriented x 3 Lines/Tubes/Other Access: Clean, Dry and Intact Peripheral IV Nutrition: Taking PO's Result Diagrams: 02/18/18 06:04 02/20/18 06:12 Assess/Plan/Problems-Billing . 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 . 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 Status: Acute Priority: High Code(s): G61.0 - GUILLAIN- [place]RE SYNDROME SNOMED Code(s): 66125818 Comment: - Cont IV Ig, today day #3/5 - Neurology following - PT/OT ordered (2) HTN (hypertension) Current Visit: Yes Status: Chronic Priority: High SNOMED Code(s): 83563202 Comment: - controlled with lisinopril and lopressor (3) Paroxysmal A-fib Current Visit: Yes Status: Chronic Priority: High SNOMED Code(s): 833719216 Comment: - in NSR, - cont lopressor (4) Hematuria Current Visit: Yes Status: Acute Priority: Medium Code(s): R31.9 - HEMATURIA, UNSPECIFIED Comment: - resolved, - pt is on Coumadin, - UA otherwise unremarkable, cont to monitor (5) DVT prophylaxis Current Visit: Yes Status: Chronic Priority: Medium Code(s): TRG2940 - Comment: - SQH Status and Disposition: . STATUS: INPATIENT
--- NOTE | 2018-02-20 10:29 | PN ---
Subjective Date of Service: 02/20/18 Interval History: - no new c/o - eager for last IVIG infusion tomorrow Family History: Unchanged from Admission Social History: Unchanged from Admission Past Medical History: Unchanged from Admission Objective Active Medications: . Acetaminophen (Tylenol Tab*) 650 mg PO Q4H PRN PRN Reason: FEVER/PAIN Docusate Sodium (Colace Cap*) 100 mg PO BID [facility] Last Admin: 02/20/18 10:04 Dose: 100 mg Finasteride (Proscar Tab*) 5 mg PO DAILY [facility] Last Admin: 02/20/18 10:04 Dose: 5 mg Immune Globulin 30 gm/ IV (Solution) 600 mls @ 0 mls/hr IV 1400 [facility]; Per Protocol PRN Reason: Protocol Stop: 02/21/18 14:01 Last Admin: 02/19/18 14:41 Dose: 48 mls/hr Lisinopril (Prinivil Tab*) 10 mg PO DAILY [facility] Last Admin: 02/20/18 10:04 Dose: 10 mg Metoprolol Succinate (Toprol Xl Tab*) 25 mg PO DAILY [facility] Last Admin: 02/20/18 10:04 Dose: 25 mg Pharmacy Profile Note (Coumadin Daily Reminder*) 1 note FOLLOW UP 1700 [facility] Last Admin: 02/19/18 17:11 Dose: 1 note Tamsulosin HCl (Flomax Cap*) 0.4 mg PO DAILY [facility] Last Admin: 02/20/18 10:04 Dose: 0.4 mg Warfarin Sodium (Coumadin Tab(*)) 6 mg PO DAILY@1700 [facility] PRN Reason: Protocol Last Admin: 02/19/18 17:10 Dose: 6 mg . Vital Signs - 8 hr 02/20/18 07:58 Temperature 98.4 F Pulse Rate 64 Respiratory 18 Rate Blood Pressure 127/71 (mmHg) O2 Sat by Pulse 97 Oximetry Oxygen Devices in Use Now: None Appearance: NAD Eyes: No Scleral Icterus Ears/Nose/Mouth/Throat: NL Teeth, Lips, Gums Neck: NL Appearance and Movements; NL JVP Respiratory: Symmetrical Chest Expansion and Respiratory Effort Cardiovascular: NL Sounds; No Murmurs; No JVD Abdominal: NL Sounds; No Tenderness; No Distention Lymphatic: No Cervical Adenopathy Extremities: No Edema Skin: No Rash or Ulcers Neurological: Alert and Oriented x 3, NL Sensation, - - still impaired gait and clumsy hand control R>L Lines/Tubes/Other Access: Clean, Dry and Intact Peripheral IV Nutrition: Taking PO's Result Diagrams: 02/18/18 06:04 02/20/18 06:12 Assess/Plan/Problems-Billing . 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 . 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 Status: Acute Priority: High Code(s): G61.0 - GUILLAIN- BARRE SYNDROME SNOMED Code(s): 16432298 Comment: - Cont IV Ig, today day #4/5 - Neurology following - PT/OT ordered (2) HTN (hypertension) Current Visit: Yes Status: Chronic Priority: High SNOMED Code(s): 57422753 Comment: - controlled with lisinopril and lopressor (3) Paroxysmal A-fib Current Visit: Yes Status: Chronic Priority: High SNOMED Code(s): 005149111 Comment: - in NSR, - cont lopressor (4) Hematuria Current Visit: Yes Status: Acute Priority: Medium Code(s): R31.9 - HEMATURIA, UNSPECIFIED Comment: - resolved, - pt is on Coumadin, - UA otherwise unremarkable, cont to monitor (5) DVT prophylaxis Current Visit: Yes Status: Chronic Priority: Medium Code(s): DCR6225 - Comment: - SQH Status and Disposition: . STATUS: INPATIENT
[2018-02-20] MEDS: IMMUNE GLOBULIN IV SCH (14:00)
[2018-02-20] MEDS: OCTAGAM IV SCH (14:00)
[2018-02-20] MEDS ORDERED: Warfarin TAB(*) 5 MG PO SCH (18:00)
[2018-02-20] MEDS ORDERED: Magnesium Sulfate CRYSTAL* 454 GM BOX TOPICAL PRN (18:23)
[2018-02-20] MEDS: Warfarin TAB(*) 6 MG PO SCH (19:25)
--- NOTE | 2018-02-21 02:55 | PN ---
NEUROLOGY FOLLOWUP NOTE: DATE OF SERVICE: 02/20/18 HISTORY: No acute overnight events. He is receiving his fourth dose of IVIG and tolerating it well. He has felt a bit more tired today. He also worked with PT and OT and did some stairs and said that went well. Overall, he and his feel that he is improving. MEDICATIONS: Reviewed and include IVIG day 4 or 5 today, lisinopril 10 mg, metoprolol 25 mg, tamsulosin 0.4 mg, warfarin 6 mg daily, finasteride 5 mg daily. PHYSICAL EXAMINATION: Vital Signs: Temperature 97 degrees, blood pressure 126/ 72, heart rate 60, oxygen saturation 99% on room air. On general examination, he is in no acute distress. His eye movements are full. Face is full and symmetric. Palate elevates symmetrically and tongue is midline. On motor examination, he has just slight weakness in the deltoids bilaterally and continues to have the previously documented intrinsic right hand muscle weakness. His lower extremities appear nearly full strength today aside from some mild give in the hip flexors bilaterally. Reflexes continue to show trace to 1+ brachioradialis. Reflexes are otherwise absent throughout. He was not ambulated today. LABORATORY DATA: BMP today showed a creatinine of 1.66 and slightly elevated BUN of 25. IMPRESSION: Guillain-[place] syndrome in a 78-year-old man with a history of atrial fibrillation, on Coumadin and recent history of TIA. He is tolerating IVIG well and is due for the last dose tomorrow. I will recheck a BMP to follow up on his creatinine tomorrow and then suggest checking another about a week after discharge. He continues to improve and I do not expect that any new symptoms will emerge at this point, which is a question that he and his had. He will need followup with my office, most likely with Dr. Cleaning, whom he has seen before as an outpatient, and we were aiming to have this the third week of February. If for some reason Dr. Cleaning is not available, then I can see him as an outpatient as well. [id number]/[facility] #: [id number] [facility]ITAL[facility]
[2018-02-21 06:39] LABS: EGFR Non-African American 43.5 (>60); INR 2.65 (0.77-1.02)
[2018-02-21] MEDS: Finasteride TAB* 5 MG PO SCH (08:50)
[2018-02-21] MEDS: Tamsulosin CAP* 0.4 MG PO SCH (08:50)
[2018-02-21] MEDS: Docusate CAP* 100 MG PO SCH (08:50)
[2018-02-21] MEDS: Lisinopril TAB* 10 MG PO SCH (08:50)
[2018-02-21] MEDS: Metoprolol Succinate XL TAB* 25 MG PO SCH (08:51)
[2018-02-21] MEDS ORDERED: OCTAGAM IV SCH (10:00)
[2018-02-21] MEDS ORDERED: IMMUNE GLOBULIN IV SCH (10:00)
[2018-02-21 13:34] VITALS: BP 148/80
[2018-02-21] MEDS ORDERED: IMMUNE GLOBULN IV SCH (19:30)
--- NOTE | 2018-02-22 03:04 | PN ---
CC: Dr. Geronimo, [place]; Dr. Cleaning, Neurology * PROGRESS NOTE: DATE OF FOLLOWUP: 02/21/18 HISTORY: No acute overnight events. At the time of my evaluation just before noon, the patient was receiving his last dose of IVIG and tolerating it well. He is looking forward to going home today. He and his do note that he does have some left deltoid pain, which he requested some Tylenol for last night which is unusual for him. He is not particularly worried about this, but his did want to make mention of it before he was discharged. MEDICATIONS: As previously documented including IVIG day 04/01. PHYSICAL EXAM: Vital Signs: Temperature 98.7, blood pressure 136/71, heart rate 54, oxygen saturation 98% on room air. General Exam: He is in no acute distress. There is some tenderness to palpation of the left deltoid. Semi reclined in his hospital bed receiving IVIG. His eye movements are full. The face has full strength and symmetric. On motor examination, he has normal strength in his deltoids today. Elbow flexion and extension appear full and his intrinsic hand muscle weakness on the right appears improved though not normal in particular the right FDI, appears improved, approximately grade 3. I do not detect any weakness in his lower extremities today. Reflexes are 1+ at the brachioradialis bilaterally, trace biceps on the left, and absent in the lower extremities. LABORATORY DATA: His BMP today showed a sodium of 132 and creatinine of 1.55. IMPRESSION AND PLAN: Dustin Tamayo is a 78-year-old man admitted with Guillain- [place] syndrome receiving his last dose of IVIG. He has tolerated this well. His strength is improving every day. He will be discharged after his dose is completed and will have followup BMP done in about a week when he is also due for his INR to be drawn. I note that his left shoulder is a bit tender to palpation, which makes me believe that the pain he is experiencing is more musculoskeletal in nature and potentially not related to Guillain-[place]. In any case, he will keep an eye on this and let Dr. Geronimo or our office know if anything is changing. He will be in touch with our office to schedule a followup visit as well, which again will be with either Dr. Cleaning or myself. [id number]/[facility] #: [id number] [facility]PITALJulius
== END 2018-02-21 14:10 | disposition home or self-care (01) | DRG 49 ==
LOC: ED 12:33 → MED 15:18
PROVIDERS: ADMIT Internal Medicine; ATTEND Internal Medicine
PROC: 3E033WL Introduction of Immunosuppressive into Peripheral Vein, Percutaneous (ICD-10-PCS; principal; 2018-02-17)
DX: G61.0 Guillain-Barre syndrome (principal); I48.0 Paroxysmal atrial fibrillation; N18.3 Chronic kidney disease, stage 3 (moderate); R31.9 Hematuria, unspecified; N40.0 Benign prostatic hyperplasia without lower urinary tract symptoms; I12.9 Hypertensive chronic kidney disease with stage 1 through stage 4 chronic kidney disease, or unspecified chronic kidney disease; Z79.899 Other long term (current) drug therapy; Z82.3 Family history of stroke; Z82.49 Family history of ischemic heart disease and other diseases of the circulatory system; Z87.891 Personal history of nicotine dependence; Z79.01 Long term (current) use of anticoagulants; Z86.73 Personal history of transient ischemic attack (TIA), and cerebral infarction without residual deficits
CPT/HCPCS: 36415; 70450; 80048; 80053; 81003; 81015; 82542; 82550; 82607; 82746; 83605; 83735; 84207; 84443; 84484; 85025; 85610; 85652; 86140; 86618; 95885; 95911; 99283; A9270-GY; G8978-GP-CH; G8987-GO-CH; G8988-GO-CH; G8989-GO-CH; J1568

== ENCOUNTER 2018-06-27 17:07 | Emergency (ER) | payer OTHER ==
[2018-06-27 18:24] LABS: ABS Basophils 0.1 10^3/ul (0-0.2); ABS Eosinophils 0.2 10^3/ul (0-0.6); ABS Lymphocytes 1.2 10^3/ul (1.0-4.8); ABS Monocytes 0.5 10^3/ul (0-0.8); ABS Neutrophils 3.4 10^3/ul (1.5-7.7); ABS Nucleated RBC 0 10^3/ul; Eosinophil % 4.1 % (0-6); Hematocrit 40 % (42-52); Hemoglobin 13.5 g/dl (14.0-18.0); Lymphocyte % 22.6 % (25-47); Mean Corpuscular HGB Conc 34 g/dl (31-36); Mean Corpuscular Hemoglobin 29 pg (27-31); Mean Corpuscular Volume 86 fL (80-94); Mean Platelet Volume 7.9 um3 (7.4-10.4); Nucleated Red Blood Cells % 0.1; Platelet Count 200 10^3/ul (150-450); Red Blood Count 4.63 10^6/ul (4.00-5.40); Red Cell Distribution Width 14 % (10.5-15); White Blood Count 5.4 10^3/ul (3.5-10.8)
[2018-06-27 18:30] LABS: Urine Appearance Cloudy; Urine Blood 3+ (Negative); Urine Ketones Negative (Negative); Urine Protein 1+(30 mg/dL) (Negative); Urine Red Blood Cell 3+(>10/hpf) (Absent); Urine Specific Gravity 1.008 (1.010-1.030); Urine Urobilinogen Negative (Negative); Urine White Blood Cell 3+(>20/hpf) (Absent)
[2018-06-27 18:32] LABS: Urine Color Red
[2018-06-27 18:36] LABS: INR 2.19 (0.77-1.02)
[2018-06-27 18:45] LABS: EGFR Non-African American 42.2 (>60)
--- NOTE | 2018-06-27 20:02 | ED ---
GI/ HPI - HPI Summary HPI Summary: This is cody Arora documenting for attending Juan Daniel Ham MD. This patient is a 78 year old M presenting to [facility] accompanied by his with a chief complaint of bleeding from the tip of his penis that began today at 1200. The patient rates the pain 0/10 in severity. Patient reports pain at the tip of his penis and hematuria. Patient denies trouble urinating and ABD pain. The patient is currently taking Coumadin for his Afib but states the bleeding has improved since earlier today. He sees a urologist in [place] for BPH. - History of Current Complaint Chief Complaint: EDUrogenitalProblems Time Seen by Provider: 06/27/18 19:46 Stated Complaint: ABNORMAL BLEEDING Hx Obtained From: Patient Onset/Duration: Started Hours Ago, Still Present Timing: Constant Severity: Moderate Current Severity: Mild Pain Intensity: 1 Additional Locations for Males: Penis Associated Signs and Symptoms: Positive: Other: - hematuria and penile bleeding - Additional Pertinent History Primary Care Physician: [id number] - Allergy/Home Medications Allergies/Adverse Reactions: Allergies Allergy/AdvReac Type Severity Reaction Status Date / Time No Known Allergies Allergy Verified 02/17/18 12:46 Home Medications: Home Medications Warfarin TAB(*) [Coumadin TAB(*)] 6 mg PO SUTUTHSA 06/27/18 [History Confirmed 06/27/18] PMH/Surg Hx/FS Hx/Imm Hx Endocrine/Hematology History: Reports: Hx Anticoagulant Therapy Denies: Hx Diabetes Cardiovascular History: Reports: Hx Atrial Fibrillation, Hx Hypercholesterolemia , Hx Hypertension, Other Cardiovascular Problems/Disorders - a fib Denies: Hx Pacemaker/ICD History: Reports: Hx Benign Prostatic Hyperplasia Denies: Hx Renal Disease Musculoskeletal History: Reports: Hx Back Problems - disc problem Sensory History: Reports: Hx Contacts or Glasses Denies: Hx Legally Blind, Hx Deafness, Hx Hearing Aid Opthamlomology History: Reports: Hx Contacts or Glasses Denies: Hx Legally Blind Neurological History: Reports: Hx Transient Ischemic Attacks (TIA) Psychiatric History: Denies: Hx Panic Disorder - Surgical History Surgery Procedure, Year, and Place: skin tages removed. ingrown toe nail removed Infectious Disease History: No Infectious Disease History: Denies: Traveled Outside the [place] in Last 30 Days - Family History Known Family History: Positive: Other - CVA mother - Social History Alcohol Use: Rare Hx Substance Use: No Substance Use Type: Reports: None Hx Tobacco Use: Yes Smoking Status (MU): Former Smoker Review of Systems Negative: Fever Negative: Abdominal Pain Positive: hematuria, pain, other - bleeding All Other Systems Reviewed And Are Negative: Yes Physical Exam - Summary Physical Exam Summary: Appearance: Well appearing, no pain distress Skin: warm, dry, reflects adequate perfusion Head/face: normal Eyes: EOMI, CHEPE ENT: normal Neck: supple, non-tender Respiratory: CTA, breath sounds present Cardiovascular: RRR, pulses symmetrical Abdomen: non-tender, soft Bowel: present Musculoskeletal: normal, strength/ROM intact Neuro: normal, sensory motor intact, A&Ox3 : Gross blood from the ureter Triage Information Reviewed: Yes Vital Signs On Initial Exam: Initial Vitals Temp Pulse Resp BP Pulse Ox 97.8 F 65 16 130/80 95 06/27/18 17:08 06/27/18 17:08 06/27/18 17:08 06/27/18 17:08 06/27/18 17:08 Vital Signs Reviewed: Yes Diagnostics - Vital Signs Vital Signs Temp Pulse Resp BP Pulse Ox 06/27/18 18:56 97.1 F 62 18 115/66 98 06/27/18 17:08 97.8 F 65 16 130/80 95 - Laboratory Lab Results: Lab Results 06/27/18 06/27/18 06/27/18 Range/Units 18:05 18:15 18:15 WBC 5.4 (3.5-10.8) 10^3/ul RBC 4.63 (4.00-5.40) 10^6/ul Hgb 13.5 L (14.0-18.0) g/dl Hct 40 L (42-52) % MCV 86 (80-94) fL MCH 29 (27-31) pg MCHC 34 (31-36) g/dl RDW 14 (10.5-15) % Plt Count 200 (150-450) 10^3/ul MPV 7.9 (7.4-10.4) um3 Neut % (Auto) 62.1 (38-83) % Lymph % (Auto) 22.6 L (25-47) % [place] % (Auto) 9.9 H (0-7) % Eos % (Auto) 4.1 (0-6) % Baso % (Auto) 1.3 (0-2) % Absolute Neuts (auto) 3.4 (1.5-7.7) 10^3/ul Absolute Lymphs (auto) 1.2 (1.0-4.8) 10^3/ul Absolute Monos (auto) 0.5 (0-0.8) 10^3/ul Absolute Eos (auto) 0.2 (0-0.6) 10^3/ul Absolute Basos (auto) 0.1 (0-0.2) 10^3/ul Absolute Nucleated RBC 0 10^3/ul Nucleated RBC % 0.1 INR (Anticoag Therapy) (0.77-1.02) Sodium 139 (135-145) mmol/L Potassium 4.6 (3.5-5.0) mmol/L Chloride 105 (101-111) mmol/L Carbon Dioxide 29 (22-32) mmol/L Anion Gap 5 (2-11) mmol/L BUN 17 (6-24) mg/dL Creatinine 1.59 H (0.67-1.17) mg/dL Est GFR ( Amer) 51.1 (>60) Est GFR (Non-Af Amer) 42.2 (>60) BUN/Creatinine Ratio 10.7 (8-20) Glucose 87 (70-100) mg/dL Calcium 9.0 (8.6-10.3) mg/dL Total Bilirubin 0.50 (0.2-1.0) mg/dL AST 19 (13-39) U/L ALT 10 (7-52) U/L Alkaline Phosphatase 58 (34-104) U/L Total Protein 6.7 (6.4-8.9) g/dL Albumin 4.3 (3.2-5.2) g/dL Globulin 2.4 (2-4) g/dL Albumin/Globulin Ratio 1.8 (1-3) Urine Color Red A Urine Appearance Cloudy Urine pH 6.0 (5-9) Ur Specific [place] 1.008 L (1.010-1.030) Urine Protein 1+(30 mg/dl) A (Negative) Urine Ketones Negative (Negative) Urine Blood 3+ A (Negative) Urine Nitrate Negative (Negative) Urine Bilirubin Negative (Negative) Urine Urobilinogen Negative (Negative) Ur Leukocyte Esterase Negative (Negative) Urine WBC (Auto) 3+(>20/hpf) A (Absent) Urine RBC (Auto) 3+(>10/hpf) A (Absent) Urine Bacteria Absent (Absent) Urine Glucose 1+(50 mg/dl) A (Negative) Blood Type Antibody Screen 06/27/18 06/27/18 Range/Units 18:15 18:15 WBC (3.5-10.8) 10^3/ul RBC (4.00-5.40) 10^6/ul Hgb (14.0-18.0) g/dl Hct (42-52) % MCV (80-94) fL MCH (27-31) pg MCHC (31-36) g/dl RDW (10.5-15) % Plt Count (150-450) 10^3/ul MPV (7.4-10.4) um3 Neut % (Auto) (38-83) % Lymph % (Auto) (25-47) % [place] % (Auto) (0-7) % Eos % (Auto) (0-6) % Baso % (Auto) (0-2) % Absolute Neuts (auto) (1.5-7.7) 10^3/ul Absolute Lymphs (auto) (1.0-4.8) 10^3/ul Absolute Monos (auto) (0-0.8) 10^3/ul Absolute Eos (auto) (0-0.6) 10^3/ul Absolute Basos (auto) (0-0.2) 10^3/ul Absolute Nucleated RBC 10^3/ul Nucleated RBC % INR (Anticoag Therapy) 2.19 H (0.77-1.02) Sodium (135-145) mmol/L Potassium (3.5-5.0) mmol/L Chloride (101-111) mmol/L Carbon Dioxide (22-32) mmol/L Anion Gap (2-11) mmol/L BUN (6-24) mg/dL Creatinine (0.67-1.17) mg/dL Est GFR ( Amer) (>60) Est GFR (Non-Af Amer) (>60) BUN/Creatinine Ratio (8-20) Glucose (70-100) mg/dL Calcium (8.6-10.3) mg/dL Total Bilirubin (0.2-1.0) mg/dL AST (13-39) U/L ALT (7-52) U/L Alkaline Phosphatase (34-104) U/L Total Protein (6.4-8.9) g/dL Albumin (3.2-5.2) g/dL Globulin (2-4) g/dL Albumin/Globulin Ratio (1-3) Urine Color Urine Appearance Urine pH (5-9) Ur Specific [place] (1.010-1.030) Urine Protein (Negative) Urine Ketones (Negative) Urine Blood (Negative) Urine Nitrate (Negative) Urine Bilirubin (Negative) Urine Urobilinogen (Negative) Ur Leukocyte Esterase (Negative) Urine WBC (Auto) (Absent) Urine RBC (Auto) (Absent) Urine Bacteria (Absent) Urine Glucose (Negative) Blood Type O Positive Antibody Screen Negative Result Diagrams: 06/27/18 18:15 06/27/18 18:15 Lab Statement: Any lab studies that have been ordered have been reviewed, and results considered in the medical decision making process. GIGU Course/Dx - Course Assessment/Plan: This patient is a 78 year [facility] M [facility] his with a chief complaint of bleeding from the tip of his penis that began today at 1200. UA and blood work obtained. Pt refused FFB and transfer to a center that has urology. Pt will be discharged and follow up with his PCP tomorrow. He will not take his blood thinner until then. Return precautions given - Diagnoses Differential Diagnoses - Male: Urethritis, Urinary Tract Infection, Other - coagulopathy Provider Diagnoses: Gross hematuria, Coagulopathy Discharge - Sign-Out/Discharge Documenting (check all that apply): Patient Departure - Discharge Plan Condition: Stable Disposition: HOME Patient Education Materials: Hematuria (ED) Referrals: Delia Geronimo [Primary Care Provider] - As Soon As Possible Additional Instructions: If symptoms become worse or any new present please return to the nearest emergency room. Do not take your Coumadin until after you see your primary care doctor tomorrow. - Billing Disposition and Condition Condition: STABLE Disposition: Home
[2018-06-27 20:22] VITALS: BP 138/81
== END 2018-06-27 20:27 | disposition home or self-care (01) ==
LOC: ED 17:07
DX: R31.0 Gross hematuria (principal); D68.9 Coagulation defect, unspecified; I48.91 Unspecified atrial fibrillation; Z79.01 Long term (current) use of anticoagulants; Z87.891 Personal history of nicotine dependence
CPT/HCPCS: 36415; 80053; 81003; 81015; 85025; 85610; 86850; 86900; 86901; 87086; 99282